=== PATIENT | male | born 1970 | race Hispanic/Latino ===

== ENCOUNTER 2020-02-17 20:02 | Inpatient (IN) | payer SELFPAY ==
[~2020-02-17] VITALS: Ht 175.3 cm; Wt 79.0 kg
[2020-02-17] MEDS ORDERED: SODIUM CHLORIDE 0.9% 1000ML 1,000 ML IV ONE (20:36)
[2020-02-17 20:56] LABS: BASOPHILS % (AUTO) 1.2 % (0.0-5.0); HEMATOCRIT 26.2 % (42-54); LYMPHOCYTES % (AUTO) 26.3 % (21.0-51.0); MEAN CORPUSCULAR HEMOGLOBIN 30.2 pg (27.0-33.0); MEAN CORPUSCULAR HGB CONC 33.2 g/dL (32.0-36.0); MONOCYTES % (AUTO) 9.4 % (3.0-13.0); NEUTROPHILS % (AUTO) 60.7 % (40.0-77.0); PLATELET COUNT (AUTO) 138 K/uL (130-400); RED BLOOD CELL COUNT(AUTO) 2.88 MIL/uL (4.50-6.20); RED CELL DISTRIBUTION WIDTH 13.2 % (11.0-15.5); WHITE BLOOD COUNT (AUTO) 7.5 K/uL (4.8-10.8)
[2020-02-17 21:10] LABS: INR 1.35 (0.85-1.15); PARTIAL THROMBOPLASTIN TIME 34.1 SEC (26.3-35.5); PROTHROMBIN TIME 14.4 SEC (9.6-11.6)
[2020-02-17 21:17] LABS: BILIRUBIN,URINE NEGATIVE (NEGATIVE); GLUCOSE, URINE (UA) NEGATIVE (NEGATIVE); KETONES,URINE NEGATIVE (NEGATIVE); LEUKOCYTE ESTERASE ,URINE LARGE (NEGATIVE); NITRATE,URINE NEGATIVE (NEGATIVE); OCCULT BLOOD,URINE LARGE (NEGATIVE); PH,URINE 6.5 (5.0-8.0); PROTEIN,URINE 30 mg/dL (NEGATIVE); UROBILINOGEN,URINE 0.2 mg/dL (0.2-1.0)
[2020-02-17 21:19] LABS: APPEARANCE,URINE BLOODY (CLEAR); COLOR,URINE RED (YELLOW)
[2020-02-17 21:21] LABS: BACTERIA,URINE Few /HPF (None Seen); RBC,URINE >100 /HPF (0-1); SQUAMOUS EPITHELIAL CELL,UR None Seen /HPF (0-2)
[2020-02-17 21:32] LABS: CREATININE 1.2 mg/dL (0.5-1.5); POTASSIUM 3.9 mmol/L (3.5-5.1)
[2020-02-17 21:36] LABS: ALBUMIN 1.6 g/dL (3.5-5.0); BILIRUBIN,TOTAL 1.3 mg/dL (0.2-1.0); TOTAL PROTEIN, SERUM 7.6 g/dL (6.0-8.3)
[2020-02-17] MEDS ORDERED: IOHEXOL-350 75 ML VIAL IV ONE (21:48)
[2020-02-17] MEDS ORDERED: FUROSEMIDE 10 MG/ML 2ML VIAL ONE (23:29)
[2020-02-17] MEDS ORDERED: CEFTRIAXONE SODIUM 1 GM ONE (23:29)
[2020-02-17] MEDS ORDERED: SODIUM CHLORIDE 0.9% 100 ML IV ONE (23:31)
[2020-02-17 23:50] LABS: AMPHET/METH SCREEN,URINE NEGATIVE (NEGATIVE); BARBITURATE SCREEN, URINE NEGATIVE (NEGATIVE); BENZODIAZEPINES SCREEN,URINE NEGATIVE (NEGATIVE); CANNABINOID SCREEN,URINE NEGATIVE (NEGATIVE); COCAINE SCREEN,URINE NEGATIVE (NEGATIVE); OPIATE SCREEN,URINE NEGATIVE (NEGATIVE); PHENCYCLIDINE SCREEN,URINE NEGATIVE (NEGATIVE)
[2020-02-18] MEDS ORDERED: ONDANSETRON HCL 4 MG/2 ML VIAL IV PRN
[2020-02-18] MEDS ORDERED: LACTULOSE 20 GM/30 ML UDCUP PO PRN
[2020-02-18] MEDS ORDERED: DIPHENHYDRAMINE HCL 25 MG CAPSULE PO PRN
[2020-02-18] MEDS ORDERED: NITROGLYCERIN 0.4 MG SL TAB SL PRN
[2020-02-18] MEDS: LACTULOSE 20 GM/30 ML UDCUP PO SCH
[2020-02-18 04:14] LABS: HEMATOCRIT 26.1 % (42-54); MEAN CORPUSCULAR HGB CONC 32.6 g/dL (32.0-36.0); MEAN CORPUSCULAR VOLUME 92.2 fL (79-99); RED BLOOD CELL COUNT(AUTO) 2.83 MIL/uL (4.50-6.20); RED CELL DISTRIBUTION WIDTH 13.2 % (11.0-15.5); WHITE BLOOD COUNT (AUTO) 7.3 K/uL (4.8-10.8)
[2020-02-18 04:23] LABS: BAND NEUTROPHILS % (MANUAL) 4 % (0-2); LYMPHOCYTES % (MANUAL) 14 % (22-44); MAN.DIFF COMMENT-IMPRESSION MANUAL DIFFERENTIAL; MONOCYTES % (MANUAL) 4 % (2-9); SEGMENTED NEUTROPHILS % 78 % (40-70)
[2020-02-18 04:24] LABS: PLATELET MORPHOLOGY COMMENT PLT. CLUMPING NOTED
[2020-02-18 04:25] LABS: PLATELET COUNT (AUTO) 156 K/uL (130-400)
[2020-02-18 04:28] LABS: ALBUMIN 1.5 g/dL (3.5-5.0); BILIRUBIN,TOTAL 1.4 mg/dL (0.2-1.0); CREATININE 1.1 mg/dL (0.5-1.5); MAGNESIUM 1.7 mg/dL (1.80-2.40); POTASSIUM 3.6 mmol/L (3.5-5.1); TOTAL PROTEIN, SERUM 7.1 g/dL (6.0-8.3)
[2020-02-18] MEDS ORDERED: POTASSIUM CHLORIDE 20MEQ/100ML 100 ML IV PRN (05:15)
[2020-02-18] MEDS ORDERED: LIDOCAINE HCL-MPF 1% 2ML VIAL IJ PRN (05:15)
[2020-02-18] MEDS ORDERED: POTASSIUM CHLORIDE 10% ELIXIR 20 MEQ/15 ML UDCUP PO PRN (05:15)
[2020-02-18] MEDS: CEFTRIAXONE SODIUM 1 GM IV SCH (06:00)
[2020-02-18] MEDS ORDERED: FAMOTIDINE/PF 20 MG/2 ML VIAL IV ONE (08:42)
[2020-02-18] MEDS ORDERED: MAGNESIUM 2GM PREMIX 50ML 50 ML IV ONE (08:42)
--- NOTE | 2020-02-18 08:57 | NUR ---
RE: PARACENTESIS PATIENT SCHEDULED FOR PARACENTESIS. COVID-19 RAPID TEST NEGATIVE AND PENDING COVID-[address] Shelley RUSH NOTIFIED AND AND STATED TO WAIT FOR RESULTS PRIOR TO PARACENTESIS. ED NURSE NOTIFIED OF PROCEDURE OUTCOME.
[2020-02-18] MEDS: FAMOTIDINE/PF 20 MG/2 ML VIAL IV SCH ×2 (09:00→20:07)
--- NOTE | 2020-02-18 12:51 | NUR ---
CM NOTE/IA UNABLE TO MET WITH PATIENT AT BEDSIDE. JAREN WILSON DID IA. PER PATIENT, LIVES WITH SISTER, HAS USE OF WALKER AND WHEELCHAIR, NO PROVIDER OR HOME HEALTH SERVICES AND FEELS SAFE TO RETURN HOME. CORRECT PATIENT PHONE NUMBERS FOLLOWS: [phone] AND [phone]. PATIENT STATES FIRST OF KIN WILL BE MINOO YANG, SIBLING BUT UNSURE OF PHONE NUMBER, WILL OBTAIN LATER. Addendum: 02/18/20 at 1253 by OLEG ANTONIO RN CM Amended: Links added.
[2020-02-18 14:36] VITALS: BP 148/98
[2020-02-18] MEDS ORDERED: TAMS-1 PO (15:07)
[2020-02-18] MEDS ORDERED: VENL-53 PO (15:07)
[2020-02-18] MEDS ORDERED: HYDR-4153 PO (15:07)
[2020-02-18] MEDS ORDERED: PANT40GR PO (15:07)
[2020-02-18] MEDS ORDERED: MIDO5TAB4 PO (15:07)
[2020-02-18] MEDS ORDERED: FURO20TA6 PO (15:09)
[2020-02-18] MEDS ORDERED: LACT10SO PO (15:09)
[2020-02-18] MEDS ORDERED: SPIR50TA5 PO (15:12)
[2020-02-18] MEDS ORDERED: FOLI1 PO (15:12)
[2020-02-18] MEDS ORDERED: MAGOX PO (15:12)
[2020-02-18] MEDS ORDERED: ONDA8TAB12 PO (15:14)
[2020-02-18] MEDS ORDERED: LACTULOSE 20 GM/30 ML UDCUP ONE (15:45)
[2020-02-18 18:52] VITALS: BP 148/95
[2020-02-18 19:37] VITALS: BP 154/105
[2020-02-18] MEDS ORDERED: HYDROMORPHONE HCL 2 MG/ML VIAL ONE (20:20)
[2020-02-18] MEDS: HYDROMORPHONE 1 MG/1 ML AMP IVP PRN (21:12)
[2020-02-19] MEDS: LACTULOSE 20 GM/30 ML UDCUP PO SCH ×3 (00:07→20:41)
[2020-02-19] MEDS: HYDROMORPHONE 1 MG/1 ML AMP IVP PRN ×2 (00:07→04:15)
[2020-02-19] MEDS ORDERED: [UNRECOGNIZED DRUG - CODE] IV (01:05)
[2020-02-19 04:05] VITALS: BP 129/78
[2020-02-19] MEDS: CEFTRIAXONE SODIUM 1 GM IV SCH (05:13)
[2020-02-19 06:08] LABS: MEAN CORPUSCULAR VOLUME 90.6 fL (79-99)
[2020-02-19 06:11] LABS: MEAN CORPUSCULAR HEMOGLOBIN 29.7 pg (27.0-33.0); MEAN CORPUSCULAR HGB CONC 32.8 g/dL (32.0-36.0); RED BLOOD CELL COUNT(AUTO) 2.76 MIL/uL (4.50-6.20); RED CELL DISTRIBUTION WIDTH 13.3 % (11.0-15.5); WHITE BLOOD COUNT (AUTO) 7.3 K/uL (4.8-10.8)
[2020-02-19 06:30] LABS: ALBUMIN 1.5 g/dL (3.5-5.0); BILIRUBIN,TOTAL 1.5 mg/dL (0.2-1.0); MAGNESIUM 1.7 mg/dL (1.80-2.40); POTASSIUM 3.3 mmol/L (3.5-5.1); TOTAL PROTEIN, SERUM 6.8 g/dL (6.0-8.3)
[2020-02-19] MEDS: POTASSIUM CHLORIDE 20 MEQ ERTAB PO PRN (06:39)
[2020-02-19 08:05] VITALS: BP 141/91
[2020-02-19] MEDS: FAMOTIDINE/PF 20 MG/2 ML VIAL IV SCH ×2 (09:02→20:41)
--- NOTE | 2020-02-19 11:58 | NUR ---
PHONE NUMBER FOR OLGA MOCTEZUMA IS [phone], GWEN YANG IS [phone]. FACE SHEET FAXED TO REGISTRATION FOR CHANGES.
--- NOTE | 2020-02-19 13:30 | NUR ---
SUPERVISOR FIBER LOCKING SHAWANDA AWARE OF COVID NEGATIVE PCR.
[2020-02-19 13:55] VITALS: BP 136/86
--- NOTE | 2020-02-19 14:30 | NUR ---
PAGED DR PARMAR. WAITING PRINTER APPRENTICE BACL. DR PARMAR WAS MADE AWARE OF THE CONSULT ON 02/17/20 ACCORDING TO ER NURSE ABAD, SHE WAS THEN WAITING ON PCR RESULT TO SEE PT. COVID PCR IS NEGATIVE. WAITING PRINTER APPRENTICE BACK TO INFORM DR PARMAR.
--- NOTE | 2020-02-19 14:34 | NUR ---
[address] Moon made aware of covid PCR results negative para to be done Friday or Friday primary nurse made aware. Ahsan woo
[2020-02-19] MEDS: MAGNESIUM 2GM PREMIX 50ML 50 ML IV PRN (16:39)
[2020-02-19 17:12] VITALS: BP 111/82
[2020-02-19 20:00] VITALS: BP 131/96
[2020-02-19] MEDS: SPIRONOLACTONE 25 MG TAB PO SCH (20:41)
[2020-02-19] MEDS: HYDRALAZINE HCL 25 MG TABLET PO SCH (20:42)
[2020-02-19] MEDS: FUROSEMIDE 20 MG TABLET PO SCH (20:42)
[2020-02-19 23:54] VITALS: BP 130/79
[2020-02-20] MEDS: LACTULOSE 20 GM/30 ML UDCUP PO SCH ×4 (02:00→20:00)
[2020-02-20 04:08] VITALS: BP 118/81
[2020-02-20] MEDS: CEFTRIAXONE SODIUM 1 GM IV SCH (05:39)
[2020-02-20 06:26] LABS: ALBUMIN 1.6 g/dL (3.5-5.0); BILIRUBIN,TOTAL 1.3 mg/dL (0.2-1.0); CREATININE 1.1 mg/dL (0.5-1.5); POTASSIUM 3.4 mmol/L (3.5-5.1); TOTAL PROTEIN, SERUM 7.2 g/dL (6.0-8.3)
[2020-02-20 06:48] LABS: BASOPHILS % (AUTO) 0.9 % (0.0-5.0); EOSINOPHILS % (AUTO) 2.1 % (0.0-8.0); HEMATOCRIT 25.3 % (42-54); LYMPHOCYTES % (AUTO) 33.9 % (21.0-51.0); MEAN CORPUSCULAR HGB CONC 33.2 g/dL (32.0-36.0); MEAN CORPUSCULAR VOLUME 90.4 fL (79-99); MONOCYTES % (AUTO) 11.5 % (3.0-13.0); NEUTROPHILS % (AUTO) 51.5 % (40.0-77.0); PLATELET COUNT (AUTO) 126 K/uL (130-400); RED CELL DISTRIBUTION WIDTH 13.2 % (11.0-15.5); WHITE BLOOD COUNT (AUTO) 7.6 K/uL (4.8-10.8)
[2020-02-20 08:00] VITALS: BP 151/101
[2020-02-20] MEDS: FUROSEMIDE 20 MG TABLET PO SCH (08:31)
[2020-02-20] MEDS: VENLAFAXINE HCL XR 37.5 MG CAP PO SCH (08:31)
[2020-02-20] MEDS: MAGNESIUM OXIDE 400 MG TABLET PO SCH (08:31)
[2020-02-20] MEDS: FOLIC ACID 1 MG TABLET PO SCH (08:31)
[2020-02-20] MEDS: FAMOTIDINE/PF 20 MG/2 ML VIAL IV SCH ×2 (08:31→21:58)
[2020-02-20] MEDS: SPIRONOLACTONE 25 MG TAB PO SCH ×2 (08:32→21:58)
--- NOTE | 2020-02-20 09:07 | NUR ---
PAGED DR PARMAR AGAIN. WAITING GAS APPLIANCE REPAIRER BACK.
[2020-02-20 12:00] VITALS: BP 135/99
[2020-02-20] MEDS ORDERED: ALBUMIN (HUMAN) 25% 200 ML IV SCH (12:15)
[2020-02-20] MEDS: DIPHENHYDRAMINE HCL 25 MG CAPSULE PO PRN (12:56)
[2020-02-20 16:00] VITALS: BP 141/99
--- NOTE | 2020-02-20 17:01 | NUR ---
REASSESSMENT MARK spoke to patient's sister, Candy Hutton. She informed SW that she is Medical and Durable POA for patient. As per sister, patient has been staying at [facility] in [place] for the past 2 weeks. He has no home services or DME. Family paid private pay for patient's placement. Sister stated that patient receives SSDI and will have Medicaid effective 03/07/2020. Sister stated that she would like for patient to return back to custodial but is unsure if they will accept him back. Patient's sister informed MARK that family is requesting hospice and would consider placing patient at [facility] or at [facility] in [place]. Sister states she is unable to care for patient at home because she cares for her spouse who suffers from Parkinson's and cares for her mother who suffers from Alzheimer's. Patient's sister stated that one of the physicians had spoken to her about Code status and she had decided that patient should be Do Not Resuscitate but had not informed anyone at the hospital. CM, Martin Landon, made aware and informed patient's nurse. Patient's sister also informed SW that patient is pending some testing to determine stomach cancer so she is waiting on those results to give consent for hospice. Sister states she has no preference on agency and just wants patient to be comfortable. MARK contacted [facility] ([phone])and spoke to House Solar Design Engineer, Kerry Nicko. Ms. Maharaj informed MARK that patient's brother had paid $1150 for patient to stay at custodial but family was unsure if they could afford to pay for another month. Ms. Maharaj stated that she did not think they could accept patient back even if he was on hospice due to financial concerns. She also stated that patient wanted someone to stay with him at all times while he had been there at the custodial and that was not possible. MARK informed patient's sister of what Ms. Maharaj had stated. Once again, patient's sister stated that she was unable to care for patient safely at home. MARK will continue to follow up with patient and sister to determine discharge disposition that is safe and appropriate for patient.
[2020-02-20 19:45] VITALS: BP 124/88
[2020-02-20] MEDS ORDERED: RISPERIDONE 1 MG TABLET PO SCH (21:00)
[2020-02-20] MEDS: RIFAXIMIN 550 MG TABLET PO SCH (21:58)
[2020-02-20] MEDS: FUROSEMIDE 40 MG TABLET PO SCH (21:59)
[2020-02-20] MEDS: HYDRALAZINE HCL 25 MG TABLET PO SCH (22:02)
[2020-02-20 23:40] VITALS: BP 104/59
[2020-02-21] VITALS (11 sets, daily range): BP systolic 99–124; BP diastolic 54–89
[2020-02-21] MEDS: LACTULOSE 20 GM/30 ML UDCUP PO SCH ×4 (02:00→20:00)
[2020-02-21] MEDS: CEFTRIAXONE SODIUM 1 GM IV SCH (05:40)
[2020-02-21 06:14] LABS: ALBUMIN 1.5 g/dL (3.5-5.0); BILIRUBIN,TOTAL 1.3 mg/dL (0.2-1.0); POTASSIUM 3.6 mmol/L (3.5-5.1); TOTAL PROTEIN, SERUM 6.8 g/dL (6.0-8.3)
[2020-02-21 07:00] LABS: EOSINOPHILS % (AUTO) 2.9 % (0.0-8.0); LYMPHOCYTES % (AUTO) 43.6 % (21.0-51.0); MEAN CORPUSCULAR HEMOGLOBIN 29.7 pg (27.0-33.0); MEAN CORPUSCULAR HGB CONC 33.2 g/dL (32.0-36.0); MEAN CORPUSCULAR VOLUME 89.6 fL (79-99); MONOCYTES % (AUTO) 9.8 % (3.0-13.0); NEUTROPHILS % (AUTO) 42.4 % (40.0-77.0); PLATELET COUNT (AUTO) 75 K/uL (130-400); RED BLOOD CELL COUNT(AUTO) 2.79 MIL/uL (4.50-6.20); RED CELL DISTRIBUTION WIDTH 13.2 % (11.0-15.5); WHITE BLOOD COUNT (AUTO) 6.8 K/uL (4.8-10.8)
[2020-02-21] MEDS ORDERED: RISPERIDONE 0.5 MG TABLET PO SCH ×2 (09:00→12:00)
[2020-02-21] MEDS: MAGNESIUM OXIDE 400 MG TABLET PO SCH (09:48)
[2020-02-21] MEDS: VENLAFAXINE HCL XR 37.5 MG CAP PO SCH (09:48)
[2020-02-21] MEDS: FUROSEMIDE 40 MG TABLET PO SCH ×2 (09:48→21:11)
[2020-02-21] MEDS: FOLIC ACID 1 MG TABLET PO SCH (09:48)
[2020-02-21] MEDS: FAMOTIDINE/PF 20 MG/2 ML VIAL IV SCH ×2 (09:49→21:10)
[2020-02-21] MEDS: RIFAXIMIN 550 MG TABLET PO SCH ×2 (09:49→21:10)
[2020-02-21] MEDS: SPIRONOLACTONE 25 MG TAB PO SCH ×2 (09:49→21:11)
--- NOTE | 2020-02-21 15:30 | NUR ---
U/S GUIDED PARACENTESIS PROCEDURE PERFORMED BY DR. BAKER. PUNCTURE SITE RIGHT LOWER QUADRANT AND PATIENT TOLERATED PROCEDURE WELL. TOTAL REMOVED 6.0 LITERS OF YELLOW CLOUDY ASCITES FLUID. END OF PROCEDURE AT 1620 CATHETER REMOVED AND DRESSING APPLIED. NO BLEEDING NOTED. ALBUMIN 25% 50 GRAMS ORDERED TO BE GIVEN IV UPON ARRIVAL TO FLOOR PER ALBUMIN PROTOCOL. REPORT CALLED TO [facility] ASC[facility] AND PATIENT TRANSPORTED TO 3RD FLOOR VIA BED. AAO X 3 WITH NO C/O PAIN. PT STABLE, AAO X 3 WITH NO C/O PAIN.
[2020-02-21] MEDS ORDERED: ALBUMIN (HUMAN) 25% 200 ML IV ONE (16:00)
[2020-02-21 17:21] LABS: ALBUMIN,BODY FLUID 0.5 g/dL
[2020-02-21 19:54] LABS: SPECIMENTYPE,BODY FLUID ASCITES
[2020-02-21 19:55] LABS: APPEARANCE BODY FLUID CLOUDY (CLEAR); COLOR,BODY FLUID DARK YELLOW (LT YELLOW); TOTAL VOLUME,BODY FLUID 6000 mL
[2020-02-21 19:56] LABS: BODY FLUID RBC 2095 /cu. mm.; BODY FLUID WBC 57 /cu. mm.
[2020-02-21 20:17] LABS: BF EOSINOPHIL 1 %; BF LYMPHOCYTE 58 %; BF OTHER CELLS 1
[2020-02-21] MEDS: HYDRALAZINE HCL 25 MG TABLET PO SCH (21:10)
--- NOTE | 2020-02-21 21:10 | NUR ---
MEDS SHIFT ASSESSMENT DONE, PLEASE REFER TO CHART. DUE MEDS ADMINISTERED, TOLERATED WELL. INSTRUCTED TO BE NPO POST MN FOR GI PROCEDURE IN AM. VERBALIZES UNDERSTANDING. CALL LIGHT WITHIN REACH. WILL MONITOR PT. Addendum: 02/21/20 at 2224 by SUJATA CURRY RN RN Amended: Links added.
[2020-02-21] MEDS: RISPERIDONE 1 MG TABLET PO SCH (21:11)
[2020-02-21] MEDS: POTASSIUM CHLORIDE 20 MEQ ERTAB PO PRN ×2 (21:13→23:43)
--- NOTE | 2020-02-21 22:35 | NUR ---
SONO[facility] RADIOLOGY CALLED AND VERIFIED US ABD ORDER. READ DR BURNS'S NOTES AND HE STATED HE WANTS A URINARY BLADDER SONOGRAM. ORDER FIXED BY RADIOLOGY TO RENAL SONOGRAM. CLAMPED F/C FOR NOW TO HAVE A FULL BLADDER FOR SONOGRAM.
[2020-02-21] MEDS: DIPHENHYDRAMINE HCL 25 MG CAPSULE PO PRN (23:43)
[2020-02-22] VITALS (22 sets, daily range): BP systolic 82–126; BP diastolic 47–85
[2020-02-22] MEDS: LACTULOSE 20 GM/30 ML UDCUP PO SCH ×4 (01:05→20:52)
--- NOTE | 2020-02-22 02:00 | NUR ---
ROUNDS PT RESTING WELL, FAIRLY ASLEEP. NO DISTRESS NOTED. KEPT UNDISTURBED FOR NOW. KEPT NPO. WILL CONTINUE TO MONITOR.
[2020-02-22 04:04] LABS: BASOPHILS % (AUTO) 0.7 % (0.0-5.0); EOSINOPHILS % (AUTO) 2.7 % (0.0-8.0); HEMATOCRIT 23.8 % (42-54); LYMPHOCYTES % (AUTO) 41.2 % (21.0-51.0); MEAN CORPUSCULAR HEMOGLOBIN 30.5 pg (27.0-33.0); MEAN CORPUSCULAR VOLUME 89.5 fL (79-99); MONOCYTES % (AUTO) 9.5 % (3.0-13.0); NEUTROPHILS % (AUTO) 45.7 % (40.0-77.0); PLATELET COUNT (AUTO) 91 K/uL (130-400); RED BLOOD CELL COUNT(AUTO) 2.66 MIL/uL (4.50-6.20); RED CELL DISTRIBUTION WIDTH 13.3 % (11.0-15.5); WHITE BLOOD COUNT (AUTO) 5.5 K/uL (4.8-10.8)
[2020-02-22 04:14] LABS: CREATININE 1.1 mg/dL (0.5-1.5); TOTAL PROTEIN, SERUM 6.4 g/dL (6.0-8.3)
--- NOTE | 2020-02-22 05:08 | NUR ---
BATHE PCP IN AND GAVE PT A BED BATH, TOLERATED ACTIVITY WELL. POSITIONED COMFORTABLY IN BED. KEPT NPO. FOR MORE CARE.
[2020-02-22] MEDS: CEFTRIAXONE SODIUM 1 GM IV SCH (05:51)
[2020-02-22] MEDS: FUROSEMIDE 40 MG TABLET PO SCH ×2 (08:19→20:49)
[2020-02-22] MEDS: SPIRONOLACTONE 25 MG TAB PO SCH ×2 (08:19→20:49)
[2020-02-22] MEDS: RIFAXIMIN 550 MG TABLET PO SCH ×2 (08:20→20:49)
[2020-02-22] MEDS: FAMOTIDINE/PF 20 MG/2 ML VIAL IV SCH ×2 (09:00→20:49)
[2020-02-22] MEDS ORDERED: PROPOFOL 10 MG/ML 20ML VIAL IV ONE (11:32)
[2020-02-22] MEDS ORDERED: MIDAZOLAM HCL 1 MG/ML 2ML VIAL ONE (11:33)
--- NOTE | 2020-02-22 14:00 | NUR ---
CM Note: Called [facility] CM called Kerry Maharaj w/[facility], left voicemail, given CM #, pending call back. CM to continue to follow up.
--- NOTE | 2020-02-22 14:50 | NUR ---
CM Note: Called family member on facesheet CM called male voice answered, asked for family member of pt, male voice verbalized "wrong number," CM verfied phone # to male voice, he said right number but does not know pt name. CM thanked male voice on the other line. CM to continue to follow up.
--- NOTE | 2020-02-22 14:53 | NUR ---
CM Note: called family phone # on facesheet. CM called family phone # on facesheet , female voice answered, asked for fam regarding pt. Female voice verbalized "she does not know that person, wrong number." Verfied phone#, female said this is her number but does not know pt. CM thanked femal voice, apologized for wrong number. CM to continue to follow up.
--- NOTE | 2020-02-22 15:00 | NUR ---
CM Note: Called [facility] CM called Kerry Maharaj w/[facility] , went to voicemail, left voicemail to call CM back, given CM direct #. Awaiting call back. CM to continue to follow up.
[2020-02-22] MEDS: MAGNESIUM OXIDE 400 MG TABLET PO SCH (15:50)
[2020-02-22] MEDS: VENLAFAXINE HCL XR 37.5 MG CAP PO SCH (15:51)
[2020-02-22] MEDS: RISPERIDONE 0.5 MG TABLET PO SCH (15:51)
[2020-02-22] MEDS: FOLIC ACID 1 MG TABLET PO SCH (15:52)
--- NOTE | 2020-02-22 16:00 | NUR ---
CM Note: Spoke to pt's brother Gorge CM called pt's brother Gorge , as per brother he is not the POA, sister claims she has MPOA but unsure. Informed brother of drake, JUDITH left 2 messages to Kerry mejía/[facility], still no return call at this time. Brother verbalized facility might not be able to accept pt back due to financial difficulties. Pt brother said he paid almost $1200 for pt's stay, but that is only for the say, facility unable to cover medical needs for patient. Brother made aware if facility does not take pt back, family will have to take pt home. Brother said he is unable to care for pt at home as he is already taking care of mother who is 94 y/0 and is taking up most of his time already. Brother verbalized sister Candy or other family will have to take patient home. Will contact family to discuss plan for home. Informed brother will call sister Candy Hutton. JUDITH to continue to follow up.
--- NOTE | 2020-02-22 16:23 | NUR ---
CM Note: spoke to pt's sister Candy Hutton CM called pt's sister Candy Hutton updated w/POC, made aware CM left two messages to Kerry w/[facility], but up to now still no call back. Informed Candy spoke to her brother Gorge and made aware of poss dc to home, as per Gorge unable to take pt home with him as he is already taking care of mother who is 94y/o and requiring a lot of assistance. Informed Valerie if facility does not want to take patient back sister will have to take pt home once ready to DC. Sister verbalized understanding and agreeable to take pt home if needed. Sister request assistance at home. Pt has walker and wheelchair, might need bed and provider to help patient as she is taking care of that has Parkinson's. Informed Candy will inform ARLEY Medina regarding request. Carol will call Candy to see how she may be able to assist pt. Candy verbalized understanding. Informed sister patient might need EMS transport to home as he is very weak and unable to get out of bed, made aware it will be private pay, EMS will mail bill to house if he goes by EMS, verbalized understanding, agreeable for EMS if necessary. DC plan to home w/. Primary nurse [facility] ESCOBEDO aware. CM informed Carol w/[facility] regarding sister Candy's request. Will call sister. CM to continue to follow up.
[2020-02-22] MEDS: HYDRALAZINE HCL 25 MG TABLET PO SCH (20:49)
[2020-02-22] MEDS: RISPERIDONE 1 MG TABLET PO SCH (20:49)
--- NOTE | 2020-02-22 20:49 | NUR ---
MEDS Due meds given,romi well.
[2020-02-23] VITALS (7 sets, daily range): BP systolic 100–126; BP diastolic 70–87
[2020-02-23] MEDS: LACTULOSE 20 GM/30 ML UDCUP PO SCH ×4 (03:10→21:29)
[2020-02-23] MEDS: CEFTRIAXONE SODIUM 1 GM IV SCH (05:29)
[2020-02-23 06:05] LABS: BASOPHILS % (AUTO) 0.7 % (0.0-5.0); EOSINOPHILS % (AUTO) 2.4 % (0.0-8.0); HEMATOCRIT 25.5 % (42-54); LYMPHOCYTES % (AUTO) 42.9 % (21.0-51.0); MEAN CORPUSCULAR HEMOGLOBIN 29.5 pg (27.0-33.0); MEAN CORPUSCULAR HGB CONC 32.5 g/dL (32.0-36.0); MEAN CORPUSCULAR VOLUME 90.7 fL (79-99); MONOCYTES % (AUTO) 11.5 % (3.0-13.0); NEUTROPHILS % (AUTO) 42.2 % (40.0-77.0); PLATELET COUNT (AUTO) 66 K/uL (130-400); RED BLOOD CELL COUNT(AUTO) 2.81 MIL/uL (4.50-6.20); RED CELL DISTRIBUTION WIDTH 13.3 % (11.0-15.5); WHITE BLOOD COUNT (AUTO) 5.8 K/uL (4.8-10.8)
[2020-02-23 06:07] LABS: CREATININE 1.1 mg/dL (0.5-1.5); POTASSIUM 3.9 mmol/L (3.5-5.1)
[2020-02-23] MEDS: RISPERIDONE 0.5 MG TABLET PO SCH (10:07)
[2020-02-23] MEDS: FOLIC ACID 1 MG TABLET PO SCH (10:07)
[2020-02-23] MEDS: VENLAFAXINE HCL XR 37.5 MG CAP PO SCH (10:07)
[2020-02-23] MEDS: FUROSEMIDE 40 MG TABLET PO SCH ×2 (10:07→21:22)
[2020-02-23] MEDS: SPIRONOLACTONE 25 MG TAB PO SCH ×2 (10:07→21:21)
[2020-02-23] MEDS: RIFAXIMIN 550 MG TABLET PO SCH ×2 (10:07→21:22)
[2020-02-23] MEDS: FAMOTIDINE/PF 20 MG/2 ML VIAL IV SCH ×2 (10:07→21:25)
[2020-02-23] MEDS: MAGNESIUM OXIDE 400 MG TABLET PO SCH (10:07)
[2020-02-23] MEDS: RISPERIDONE 1 MG TABLET PO SCH (21:22)
[2020-02-23] MEDS: HYDRALAZINE HCL 25 MG TABLET PO SCH (21:22)
[2020-02-24 03:54] VITALS: BP 102/75
[2020-02-24 04:06] LABS: BASOPHILS % (AUTO) 0.9 % (0.0-5.0); EOSINOPHILS % (AUTO) 2.4 % (0.0-8.0); HEMATOCRIT 23.9 % (42-54); LYMPHOCYTES % (AUTO) 40.8 % (21.0-51.0); MEAN CORPUSCULAR HGB CONC 33.9 g/dL (32.0-36.0); MEAN CORPUSCULAR VOLUME 88.5 fL (79-99); MONOCYTES % (AUTO) 10.3 % (3.0-13.0); NEUTROPHILS % (AUTO) 45.2 % (40.0-77.0); PLATELET COUNT (AUTO) 80 K/uL (130-400); WHITE BLOOD COUNT (AUTO) 5.4 K/uL (4.8-10.8)
[2020-02-24 04:16] LABS: CREATININE 1.4 mg/dL (0.5-1.5); POTASSIUM 3.9 mmol/L (3.5-5.1)
[2020-02-24] MEDS: CEFTRIAXONE SODIUM 1 GM IV SCH (05:41)
[2020-02-24] MEDS: LACTULOSE 20 GM/30 ML UDCUP PO SCH ×4 (05:41→21:46)
[2020-02-24 07:30] VITALS: BP 111/79
[2020-02-24] MEDS: MAGNESIUM OXIDE 400 MG TABLET PO SCH (10:04)
[2020-02-24] MEDS: RISPERIDONE 0.5 MG TABLET PO SCH (10:04)
[2020-02-24] MEDS: RIFAXIMIN 550 MG TABLET PO SCH ×2 (10:04→21:46)
[2020-02-24] MEDS: FOLIC ACID 1 MG TABLET PO SCH (10:04)
[2020-02-24] MEDS: FAMOTIDINE/PF 20 MG/2 ML VIAL IV SCH ×2 (10:05→21:47)
[2020-02-24] MEDS: LACTATED RINGERS 1000ML 1,000 ML IV SCH ×2 (10:08→20:50)
[2020-02-24 11:00] VITALS: BP 104/75
--- NOTE | 2020-02-24 12:24 | NUR ---
RD NOTIFICATION Pt admitted due to Ascites, Pleural Effusion, and UTI. Pt has hx of paracentesis. Recent paracentesis removed 6 L of fluid as per EMR Pt seen by RD due to LOS x7 days. Pt is currently on a HH diet and consuming 75-100%. RD spoke to pt, pt stated having an appetite and eating well. Pt has hx of smoking, has since quite and has habit of having lollipops. Pt is requesting lollipops and cheetos. As per RN, pt dislikes the taste of hospital food. PO intake fluctuates. RD unable to obtain accurate information on weight loss. Pt has Mild-Moderate muscle loss upon NFPA. Pt is at increased energy and protein needs due to hx of liver cirrhosis. RD RECOMMENDATION: Continue current diet order Ensure TID. Monitor PO intake When medically feasible, consider MVI supplementation RD will continue to follow pt Contact dietary as nutritional concerns arise LABS: NA 131, CL 99, GFR 57, BG 150, TOT CA 8.1, IRON 70, TIBC 140, %SAT 50, TOT PRO 6.4, ALB 2.0, AMMONIA 22 LBM: 02/21/20 Addendum: 02/24/20 at [address] Amended: Links added.
[2020-02-24 13:40] LABS: CREATININE 1.5 mg/dL (0.5-1.5); POTASSIUM 4.3 mmol/L (3.5-5.1)
[2020-02-24] MEDS: PHARMACY COMMUNICATION MISC SCH ×3 (14:00→22:00)
[2020-02-24] MEDS: VENLAFAXINE HCL XR 37.5 MG CAP PO SCH (14:45)
[2020-02-24 16:00] VITALS: BP 116/78
[2020-02-24 18:28] LABS: APPEARANCE,URINE Clear (CLEAR); BILIRUBIN,URINE Negative (NEGATIVE); COLOR,URINE Yellow (YELLOW); GLUCOSE, URINE (UA) Negative (NEGATIVE); KETONES,URINE Trace mg/dL (NEGATIVE); LEUKOCYTE ESTERASE ,URINE Small (NEGATIVE); NITRATE,URINE Negative (NEGATIVE); OCCULT BLOOD,URINE Negative (NEGATIVE); PROTEIN,URINE Negative (NEGATIVE)
[2020-02-24 18:30] LABS: CHLORIDE,URINE RANDOM 45 mmol/L (110-250); CREATININE,URINE RANDOM 110 mg/dL (30-135); SODIUM,URINE RANDOM 31 mmol/l (40-220)
[2020-02-24] MEDS: ALBUMIN (HUMAN) 25% 50 ML IV SCH (18:37)
[2020-02-24 18:44] LABS: BACTERIA,URINE Few /HPF (None Seen)
[2020-02-24 18:47] LABS: YEAST,URINE BUDDING Few /HPF (None Seen)
[2020-02-24 18:48] LABS: AMORPHOUS SEDIMENT,UR Few /LPF (None Seen); MUCUS,URINE Rare LPF (None Seen); SQUAMOUS EPITHELIAL CELL,UR Rare /HPF (0-2)
[2020-02-24 19:30] VITALS: BP 100/66
[2020-02-24] MEDS: HYDRALAZINE HCL 25 MG TABLET PO SCH (21:46)
[2020-02-24] MEDS: OLANZAPINE 5 MG TAB PO SCH (21:46)
[2020-02-24 23:30] VITALS: BP 96/63
[2020-02-25] MEDS: ALBUMIN (HUMAN) 25% 50 ML IV SCH ×2 (01:37→10:47)
[2020-02-25] MEDS: PHARMACY COMMUNICATION MISC SCH ×2 (02:00→06:00)
[2020-02-25 03:46] VITALS: BP 103/70
[2020-02-25 04:11] LABS: HEMATOCRIT 24.2 % (42-54); MEAN CORPUSCULAR HEMOGLOBIN 30.1 pg (27.0-33.0); MEAN CORPUSCULAR HGB CONC 33.9 g/dL (32.0-36.0); RED BLOOD CELL COUNT(AUTO) 2.72 MIL/uL (4.50-6.20); RED CELL DISTRIBUTION WIDTH 13.2 % (11.0-15.5); WHITE BLOOD COUNT (AUTO) 5.7 K/uL (4.8-10.8)
[2020-02-25 04:23] LABS: % IRON SATURATION 25.5 % (30-44)
[2020-02-25 04:46] LABS: ALBUMIN 2.1 g/dL (3.5-5.0); BILIRUBIN,TOTAL 0.9 mg/dL (0.2-1.0); CREATININE 1.1 mg/dL (0.5-1.5); MAGNESIUM 1.8 mg/dL (1.80-2.40); PHOSPHORUS 2.8 mg/dL (2.5-4.9); POTASSIUM 4.1 mmol/L (3.5-5.1); THYROID STIMULATING HORMONE 2.87 uIU/mL (0.36-3.74); TOTAL PROTEIN, SERUM 6.9 g/dL (6.0-8.3); URIC ACID 5.2 mg/dL (2.6-7.2)
[2020-02-25] MEDS: LACTULOSE 20 GM/30 ML UDCUP PO SCH ×4 (05:29→20:12)
[2020-02-25] MEDS: CEFTRIAXONE SODIUM 1 GM IV SCH (05:30)
[2020-02-25 09:58] VITALS: BP 100/66
[2020-02-25] MEDS: Vitamin B Complex/Vit C/Folic Acid PO SCH (10:46)
[2020-02-25] MEDS: FAMOTIDINE/PF 20 MG/2 ML VIAL IV SCH ×2 (10:46→20:12)
[2020-02-25] MEDS: RISPERIDONE 0.5 MG TABLET PO SCH (10:46)
[2020-02-25] MEDS: RIFAXIMIN 550 MG TABLET PO SCH ×2 (10:46→20:13)
[2020-02-25] MEDS: OLANZAPINE 5 MG TAB PO SCH ×2 (10:46→20:12)
[2020-02-25] MEDS: MAGNESIUM OXIDE 400 MG TABLET PO SCH (10:46)
[2020-02-25] MEDS: LACTATED RINGERS 1000ML 1,000 ML IV SCH (10:47)
[2020-02-25] MEDS: VENLAFAXINE HCL XR 37.5 MG CAP PO SCH (10:47)
[2020-02-25] MEDS: FOLIC ACID 1 MG TABLET PO SCH (10:52)
[2020-02-25 12:13] VITALS: BP 105/71
[2020-02-25 16:56] VITALS: BP 114/73
[2020-02-25] MEDS ORDERED: POLYETHYLENE GLYCOL 3350 17 GM POWD.PACK PO SCH (18:00)
[2020-02-25 20:04] VITALS: BP 123/77
[2020-02-25] MEDS: HYDRALAZINE HCL 25 MG TABLET PO SCH (20:13)
--- NOTE | 2020-02-25 20:15 | NUR ---
MEDS SHIFT ASSESSMENT DONE, PLEASE REFER TO CHART. NOTED TO BE COHERENT AT THIS TIME BUT CLAIMS HE HAS EPISODES OF HALLUCINATIONS. ASSISTED TO BE CLEANED AFTER USING THE BEDPAN. DUE MEDS ADMINISTERED, TOLERATED WELL. CALL LIGHT WITHIN REACH. WILL MONITOR PT. PCP MADE AWARE THAT PT NEED A BATH. Addendum: 02/25/20 at 2310 by SUJATA CURRY RN RN Amended: Links added.
[2020-02-25] MEDS: MAGNESIUM 2GM PREMIX 50ML 50 ML IV PRN (23:52)
[2020-02-26] VITALS (7 sets, daily range): BP systolic 103–124; BP diastolic 67–89
--- NOTE | 2020-02-26 02:00 | NUR ---
ROUNDS PT RESTING WELL, FAIRLY ASLEEP. NO DISTRESS NOTED. AWAKENED FOR DUE MEDS, TOLERATED WELL. ENCOURAGED TO GO BACK TO SLEEP. CALL LIGHT WITHIN REACH. WILL MONITOR PT.
[2020-02-26] MEDS: LACTULOSE 20 GM/30 ML UDCUP PO SCH ×4 (02:12→20:57)
[2020-02-26] MEDS: CEFTRIAXONE SODIUM 1 GM IV SCH (06:08)
--- NOTE | 2020-02-26 06:10 | NUR ---
MEDS PT ALREADY AWAKE. NO CONCERNS VERBALIZED. NO DISTRESS NOTED. DUE MEDS ADMINISTERED, TOLERATED WELL. KEPT COMFORTABLE IN BED. FOR MORE CARE.
[2020-02-26 08:00] LABS: CREATININE 1.1 mg/dL (0.5-1.5); POTASSIUM 4.1 mmol/L (3.5-5.1)
[2020-02-26] MEDS: RIFAXIMIN 550 MG TABLET PO SCH ×2 (11:45→20:57)
[2020-02-26] MEDS: VENLAFAXINE HCL XR 37.5 MG CAP PO SCH (11:45)
[2020-02-26] MEDS: MAGNESIUM OXIDE 400 MG TABLET PO SCH (11:45)
[2020-02-26] MEDS: Vitamin B Complex/Vit C/Folic Acid PO SCH (11:45)
[2020-02-26] MEDS: FAMOTIDINE/PF 20 MG/2 ML VIAL IV SCH ×2 (11:45→20:57)
[2020-02-26] MEDS: RISPERIDONE 0.5 MG TABLET PO SCH (11:46)
[2020-02-26] MEDS: OLANZAPINE 5 MG TAB PO SCH ×2 (11:46→20:57)
[2020-02-26] MEDS: FOLIC ACID 1 MG TABLET PO SCH (11:47)
[2020-02-26] MEDS: HYDRALAZINE HCL 25 MG TABLET PO SCH (20:58)
[2020-02-27] MEDS: LACTULOSE 20 GM/30 ML UDCUP PO SCH ×4 (02:35→20:00)
[2020-02-27 03:59] VITALS: BP 111/70
[2020-02-27] MEDS: CEFTRIAXONE SODIUM 1 GM IV SCH (05:39)
[2020-02-27 06:06] LABS: BASOPHILS % (AUTO) 1.2 % (0.0-5.0); EOSINOPHILS % (AUTO) 3.9 % (0.0-8.0); HEMATOCRIT 22.7 % (42-54); LYMPHOCYTES % (AUTO) 32.4 % (21.0-51.0); MEAN CORPUSCULAR HEMOGLOBIN 30.6 pg (27.0-33.0); MEAN CORPUSCULAR HGB CONC 33.9 g/dL (32.0-36.0); MEAN CORPUSCULAR VOLUME 90.1 fL (79-99); PLATELET COUNT (AUTO) 86 K/uL (130-400); RED BLOOD CELL COUNT(AUTO) 2.52 MIL/uL (4.50-6.20); RED CELL DISTRIBUTION WIDTH 13.4 % (11.0-15.5); WHITE BLOOD COUNT (AUTO) 6.6 K/uL (4.8-10.8)
[2020-02-27 06:09] LABS: CREATININE 1.2 mg/dL (0.5-1.5); POTASSIUM 4.3 mmol/L (3.5-5.1)
[2020-02-27 08:50] VITALS: BP 108/75
[2020-02-27] MEDS: RISPERIDONE 0.5 MG TABLET PO SCH (09:43)
[2020-02-27] MEDS: VENLAFAXINE HCL XR 37.5 MG CAP PO SCH (09:43)
[2020-02-27] MEDS: MAGNESIUM OXIDE 400 MG TABLET PO SCH (09:43)
[2020-02-27] MEDS: FAMOTIDINE/PF 20 MG/2 ML VIAL IV SCH ×2 (09:43→21:45)
[2020-02-27] MEDS: OLANZAPINE 5 MG TAB PO SCH ×2 (09:43→21:45)
[2020-02-27] MEDS: Vitamin B Complex/Vit C/Folic Acid PO SCH (09:43)
[2020-02-27] MEDS: RIFAXIMIN 550 MG TABLET PO SCH ×2 (09:43→21:45)
[2020-02-27] MEDS: FOLIC ACID 1 MG TABLET PO SCH (09:44)
--- NOTE | 2020-02-27 11:18 | NUR ---
SPOKE TO YOSELIN ( TROPICAL SCREENER ), STATED PATIENT DOES NOT MEET CRITERIA AT THIS TIME. OKAY TO CALL BACK IF FURTHER ASSISTANCE IS NEEDED.
[2020-02-27 12:28] VITALS: BP 117/81
[2020-02-27 19:28] VITALS: BP 112/74
[2020-02-27 20:02] VITALS: BP 124/74
[2020-02-27] MEDS: HYDRALAZINE HCL 25 MG TABLET PO SCH (21:45)
[2020-02-28 00:55] VITALS: BP 113/70
[2020-02-28] MEDS: LACTULOSE 20 GM/30 ML UDCUP PO SCH ×3 (02:00→14:00)
[2020-02-28 04:04] VITALS: BP 109/72
[2020-02-28 07:51] VITALS: BP 116/81
[2020-02-28] MEDS: VENLAFAXINE HCL XR 37.5 MG CAP PO SCH (09:38)
[2020-02-28] MEDS: RIFAXIMIN 550 MG TABLET PO SCH (09:39)
[2020-02-28] MEDS: MAGNESIUM OXIDE 400 MG TABLET PO SCH (09:39)
[2020-02-28] MEDS: Vitamin B Complex/Vit C/Folic Acid PO SCH (09:39)
[2020-02-28] MEDS: RISPERIDONE 0.5 MG TABLET PO SCH (09:39)
[2020-02-28] MEDS: OLANZAPINE 5 MG TAB PO SCH (09:40)
[2020-02-28] MEDS: FOLIC ACID 1 MG TABLET PO SCH (09:40)
[2020-02-28] MEDS: FAMOTIDINE/PF 20 MG/2 ML VIAL IV SCH (09:45)
[2020-02-28 11:32] VITALS: BP 137/84
[2020-02-28 16:11] VITALS: BP 103/69
--- NOTE | 2020-02-28 17:51 | NUR ---
PT DISCHARGED IN GOOD CONDITION BY W/C, IV REMOVED W/O DIFFICULTY OR COMPLICATION. PT STATED UNDERSTANDING OF DISCHARGE INSTRUCTIONS. DISMISSED ACCOMPANIED BY STAFF AND FAMILY
--- NOTE | 2020-02-29 11:20 | NUR ---
POST DISCHARGE - TRANSITIONAL CARE TELEPHONE TRIAGE Spoke with Candy Hutton, sister and POA, and she states is unable to take care of patient. Patient has not picked up prescriptions because patient nor Ms Hutton is able to afford it. As per Ms Hutton, patient is incontinent and she is unable to keep up with his demands, and the demands of her elderly parent as she is also the primary caregiver of them. Ms Hutton stated she cannot take care of the patient any longer, and wishes he be "given to the state." Nursing telephone assessment: I agree that the patient's basic needs are not being met due to finances, general lack of resources, the POAs inability to manage his care, and the patient's own inability to self-manage care. Family is present, but unable to manage two total care patients alone. Plan: [facility] phone number was given to Ms Hutton, and she states that she will call immediately after ending phone call. Will follow up to see if Ms Hutton was successful in submitting report.
--- NOTE | 2020-02-29 13:37 | NUR ---
POST DISCHARGE - TRANSITIONAL CARE NOTE Ms Hutton unable to file report with [facility]. I was able to get through and file report with Brigette Irizarry.
== END 2020-02-28 17:55 | disposition home or self-care (01) | DRG 441 ==
LOC: EDH 20:02 → EDHIP 20:03 → 3BH 02-18 18:32
PROVIDERS: ADMIT Family Medicine; ATTEND Family Medicine
PROC: 0DB68ZZ Excision of Stomach, Via Natural or Artificial Opening Endoscopic (ICD-10-PCS; 2020-02-22)
PROC: 0DB68ZX Excision of Stomach, Via Natural or Artificial Opening Endoscopic, Diagnostic (ICD-10-PCS; 2020-02-22)
PROC: 0W9G3ZZ Drainage of Peritoneal Cavity, Percutaneous Approach (ICD-10-PCS; principal; 2020-02-23)
DX: K72.90 Hepatic failure, unspecified without coma (principal); G93.41 Metabolic encephalopathy; T83.511A Infection and inflammatory reaction due to indwelling urethral catheter, initial encounter; J90 Pleural effusion, not elsewhere classified; D68.9 Coagulation defect, unspecified; N17.9 Acute kidney failure, unspecified; K56.49 Other impaction of intestine; C16.9 Malignant neoplasm of stomach, unspecified; E87.1 Hypo-osmolality and hyponatremia; F32.3 Major depressive disorder, single episode, severe with psychotic features; R64 Cachexia; K56.41 Fecal impaction; E83.42 Hypomagnesemia; K80.20 Calculus of gallbladder without cholecystitis without obstruction; K31.7 Polyp of stomach and duodenum; D50.0 Iron deficiency anemia secondary to blood loss (chronic); B96.1 Klebsiella pneumoniae [K. pneumoniae] as the cause of diseases classified elsewhere; D64.9 Anemia, unspecified; D69.6 Thrombocytopenia, unspecified; E11.22 Type 2 diabetes mellitus with diabetic chronic kidney disease; I12.9 Hypertensive chronic kidney disease with stage 1 through stage 4 chronic kidney disease, or unspecified chronic kidney disease; K29.70 Gastritis, unspecified, without bleeding; K70.31 Alcoholic cirrhosis of liver with ascites; N18.9 Chronic kidney disease, unspecified; R31.29 Other microscopic hematuria; R62.7 Adult failure to thrive; Y84.6 Urinary catheterization as the cause of abnormal reaction of the patient, or of later complication, without mention of misadventure at the time of the procedure; Z68.28 Body mass index [BMI] 28.0-28.9, adult; Y92.89 Other specified places as the place of occurrence of the external cause
CPT/HCPCS: 36415; 43239; 49083; 70450; 71045; 74018; 74177; 76770; 80048; 80053; 80305; 81001; 82042; 82105; 82140; 82150; 82270; 82436; 82570; 82728; 82948; 83540; 83550; 83605; 83690; 83735; 83935; 84100; 84145; 84157; 84300; 84443; 84484; 84550; 85025; 85027; 85610; 85730; 86900; 86901; 87040; 87071; 87077; 87088; 87186; 87205; 87426; 87804; 89051; 93005; 97039; A4606; G0378; J0696; J1170; J1940; J2250; J2704; J3475; J3490; J7030; J7120; P9046; P9047; Q0163; Q9967; U0003

== ENCOUNTER 2020-03-01 09:16 | Inpatient (IN) | payer SELFPAY ==
[~2020-03-01] VITALS: Ht 175.3 cm; Wt 83.2 kg
[~2020-03-01 09:16] MED LIST: FOLI1 PO; MAGOX PO; MIDO5TAB4 PO; ONDA8TAB12 PO; PANT40GR PO; TAMS-1 PO; VENL-53 PO
[2020-03-01 12:40] LABS: ALBUMIN 1.8 g/dL (3.5-5.0); BILIRUBIN,TOTAL 0.9 mg/dL (0.2-1.0); CREATININE 1.1 mg/dL (0.5-1.5); POTASSIUM 4.4 mmol/L (3.5-5.1); TOTAL PROTEIN, SERUM 6.7 g/dL (6.0-8.3)
[2020-03-01] MEDS ORDERED: LACTULOSE 20 GM/30 ML UDCUP PO SCH ×2 (14:15)
[2020-03-01] MEDS ORDERED: NITROGLYCERIN 0.4 MG SL TAB SL PRN (14:30)
[2020-03-01] MEDS ORDERED: LACTULOSE 20 GM/30 ML UDCUP PO PRN (14:30)
[2020-03-01 14:55] LABS: WHITE BLOOD COUNT (AUTO) 5.8 K/uL (4.8-10.8)
[2020-03-01] MEDS ORDERED: LACTULOSE 20 GM/30 ML UDCUP ONE (15:14)
[2020-03-01 15:32] LABS: RED BLOOD CELL COUNT(AUTO) 2.42 MIL/uL (4.50-6.20)
[2020-03-01 15:33] LABS: MEAN CORPUSCULAR HGB CONC 34.1 g/dL (32.0-36.0); MEAN CORPUSCULAR VOLUME 90.9 fL (79-99); PLATELET COUNT (AUTO) 104 K/uL (130-400); RED CELL DISTRIBUTION WIDTH 14.2 % (11.0-15.5)
[2020-03-01 15:34] LABS: BASOPHILS % (AUTO) 1.2 % (0.0-5.0); EOSINOPHILS % (AUTO) 3.3 % (0.0-8.0); LYMPHOCYTES % (AUTO) 33.1 % (21.0-51.0); MONOCYTES % (AUTO) 11.9 % (3.0-13.0); NEUTROPHILS % (AUTO) 50.2 % (40.0-77.0)
[2020-03-01] MEDS ORDERED: PANTOPRAZOLE SODIUM 80 MG in SODIUM CHLORIDE 0.9% 100 ML IVP SCH ×2 (16:30→18:45)
[2020-03-01] MEDS ORDERED: OCTREOTIDE ACETATE 1,250 MCG in SODIUM CHLORIDE 0.9% 250 ML IV SCH ×2 (16:30→18:45)
[2020-03-01 16:40] LABS: HEMATOCRIT 23.2 % (42-54)
[2020-03-01 17:32] VITALS: BP 121/85
[2020-03-01] MEDS: CEFTRIAXONE SODIUM 1 GM IVP SCH (18:29)
[2020-03-01] MEDS ORDERED: COMPOUND IV REFRIGERATED 1 EACH IVSOLN MISC PRN (18:45)
[2020-03-01 19:46] LABS: INR 1.45 (0.85-1.15); PARTIAL THROMBOPLASTIN TIME 34.3 SEC (26.3-35.5); PROTHROMBIN TIME 15.4 SEC (9.6-11.6)
[2020-03-01 20:28] VITALS: BP 97/74
[2020-03-01] MEDS: FAMOTIDINE 20MG TAB 20 MG TAB PO SCH (20:28)
[2020-03-01] MEDS: LACTULOSE 20 GM/30 ML UDCUP PO SCH (20:28)
[2020-03-01] MEDS: PANTOPRAZOLE 40 MG/VIAL IVP SCH (20:29)
[2020-03-01] MEDS ORDERED: PANTOPRAZOLE 40 MG/VIAL IVP SCH (21:00)
[2020-03-01] MEDS ORDERED: MORPHINE SULFATE 2 MG/ML 1ML SYG IVP ONE (23:00)
[2020-03-02 00:19] LABS: HEMATOCRIT 24.9 % (42-54)
[2020-03-02 00:20] VITALS: BP 142/86
[2020-03-02 04:36] VITALS: BP 126/81
[2020-03-02 05:04] LABS: BASOPHILS % (AUTO) 1.1 % (0.0-5.0); EOSINOPHILS % (AUTO) 2.6 % (0.0-8.0); HEMATOCRIT 23.8 % (42-54); LYMPHOCYTES % (AUTO) 29.8 % (21.0-51.0); MEAN CORPUSCULAR HEMOGLOBIN 30.1 pg (27.0-33.0); MEAN CORPUSCULAR VOLUME 88.5 fL (79-99); NEUTROPHILS % (AUTO) 54.3 % (40.0-77.0); PLATELET COUNT (AUTO) 91 K/uL (130-400); RED BLOOD CELL COUNT(AUTO) 2.69 MIL/uL (4.50-6.20); RED CELL DISTRIBUTION WIDTH 14.4 % (11.0-15.5); WHITE BLOOD COUNT (AUTO) 6.4 K/uL (4.8-10.8)
[2020-03-02 05:18] LABS: ALBUMIN 1.7 g/dL (3.5-5.0); BILIRUBIN,TOTAL 2.1 mg/dL (0.2-1.0); POTASSIUM 4.1 mmol/L (3.5-5.1); TOTAL PROTEIN, SERUM 6.6 g/dL (6.0-8.3)
[2020-03-02 08:00] VITALS: BP 129/89
[2020-03-02 09:58] LABS: HEMATOCRIT 24.9 % (42-54)
[2020-03-02] MEDS: FOLIC ACID 1 MG TABLET PO SCH (10:09)
[2020-03-02] MEDS: VENLAFAXINE HCL XR 37.5 MG CAP PO SCH (10:09)
[2020-03-02] MEDS: PANTOPRAZOLE 40 MG/VIAL IVP SCH ×2 (10:10→20:03)
[2020-03-02] MEDS: FAMOTIDINE 20MG TAB 20 MG TAB PO SCH ×2 (10:10→20:01)
[2020-03-02] MEDS: LACTULOSE 20 GM/30 ML UDCUP PO SCH ×2 (10:10→20:01)
[2020-03-02 11:45] VITALS: BP 113/78
[2020-03-02 16:00] VITALS: BP 98/71
[2020-03-02 16:36] LABS: BILIRUBIN,URINE Negative (NEGATIVE); COLOR,URINE Yellow (YELLOW); GLUCOSE, URINE (UA) Negative (NEGATIVE); KETONES,URINE Negative (NEGATIVE); LEUKOCYTE ESTERASE ,URINE Small (NEGATIVE); NITRATE,URINE Negative (NEGATIVE); OCCULT BLOOD,URINE Small (NEGATIVE); PROTEIN,URINE Negative (NEGATIVE)
[2020-03-02 16:38] LABS: APPEARANCE,URINE CLEAR (CLEAR)
[2020-03-02 16:48] LABS: BACTERIA,URINE Rare /HPF (None Seen); SQUAMOUS EPITHELIAL CELL,UR Rare /HPF (0-2)
[2020-03-02] MEDS: CEFTRIAXONE SODIUM 1 GM IVP SCH (18:12)
[2020-03-02 19:39] VITALS: BP 121/77
[2020-03-03] VITALS: BP 137/94
[2020-03-03 04:00] VITALS: BP 121/85
[2020-03-03 06:09] LABS: BASOPHILS % (AUTO) 1.2 % (0.0-5.0); EOSINOPHILS % (AUTO) 3.5 % (0.0-8.0); HEMATOCRIT 24.7 % (42-54); LYMPHOCYTES % (AUTO) 35.2 % (21.0-51.0); MEAN CORPUSCULAR HEMOGLOBIN 30.2 pg (27.0-33.0); MEAN CORPUSCULAR VOLUME 88.8 fL (79-99); MONOCYTES % (AUTO) 13.8 % (3.0-13.0); NEUTROPHILS % (AUTO) 46.1 % (40.0-77.0); RED BLOOD CELL COUNT(AUTO) 2.78 MIL/uL (4.50-6.20); RED CELL DISTRIBUTION WIDTH 14.5 % (11.0-15.5)
[2020-03-03 06:20] LABS: ALBUMIN 1.6 g/dL (3.5-5.0); CREATININE 1.1 mg/dL (0.5-1.5); POTASSIUM 3.8 mmol/L (3.5-5.1); TOTAL PROTEIN, SERUM 6.4 g/dL (6.0-8.3)
[2020-03-03 06:43] LABS: PLATELET COUNT (AUTO) 96 K/uL (130-400)
[2020-03-03 08:18] VITALS: BP 138/91
[2020-03-03] MEDS: VENLAFAXINE HCL XR 37.5 MG CAP PO SCH (09:54)
[2020-03-03] MEDS: FOLIC ACID 1 MG TABLET PO SCH (09:54)
[2020-03-03] MEDS: LACTULOSE 20 GM/30 ML UDCUP PO SCH ×2 (09:55→20:04)
[2020-03-03] MEDS: PANTOPRAZOLE 40 MG/VIAL IVP SCH ×2 (09:55→20:04)
[2020-03-03 12:34] VITALS: BP 125/85
[2020-03-03 17:16] VITALS: BP 119/83
[2020-03-03] MEDS: CEFTRIAXONE SODIUM 1 GM IVP SCH (17:57)
[2020-03-03 20:00] VITALS: BP 128/87
[2020-03-03] MEDS: ONDANSETRON HCL 4 MG/2 ML VIAL IV PRN (21:30)
[2020-03-04] VITALS (7 sets, daily range): BP systolic 116–139; BP diastolic 81–95
[2020-03-04 05:57] LABS: BASOPHILS % (AUTO) 1.1 % (0.0-5.0); EOSINOPHILS % (AUTO) 3.4 % (0.0-8.0); LYMPHOCYTES % (AUTO) 39.1 % (21.0-51.0); MEAN CORPUSCULAR HEMOGLOBIN 30.5 pg (27.0-33.0); MEAN CORPUSCULAR VOLUME 89.6 fL (79-99); MONOCYTES % (AUTO) 13.5 % (3.0-13.0); NEUTROPHILS % (AUTO) 42.7 % (40.0-77.0); PLATELET COUNT (AUTO) 72 K/uL (130-400); RED BLOOD CELL COUNT(AUTO) 2.79 MIL/uL (4.50-6.20); RED CELL DISTRIBUTION WIDTH 14.4 % (11.0-15.5); WHITE BLOOD COUNT (AUTO) 5.2 K/uL (4.8-10.8)
[2020-03-04 06:02] LABS: ALBUMIN 1.7 g/dL (3.5-5.0); BILIRUBIN,TOTAL 1.5 mg/dL (0.2-1.0); POTASSIUM 3.6 mmol/L (3.5-5.1); TOTAL PROTEIN, SERUM 6.8 g/dL (6.0-8.3)
[2020-03-04] MEDS ORDERED: RISPERIDONE 1 MG TABLET PO SCH (10:00)
[2020-03-04] MEDS: VENLAFAXINE HCL XR 37.5 MG CAP PO SCH (10:01)
[2020-03-04] MEDS: LACTULOSE 20 GM/30 ML UDCUP PO SCH ×2 (10:01→21:00)
[2020-03-04] MEDS: FOLIC ACID 1 MG TABLET PO SCH (10:01)
[2020-03-04] MEDS: PANTOPRAZOLE 40 MG/VIAL IVP SCH ×2 (10:01→22:39)
[2020-03-04] MEDS: ONDANSETRON HCL 4 MG/2 ML VIAL IV PRN (10:01)
[2020-03-04] MEDS: RISPERIDONE 1 MG TABLET PO SCH (10:04)
[2020-03-04] MEDS: CEFTRIAXONE SODIUM 1 GM IVP SCH (17:31)
[2020-03-05 04:20] VITALS: BP 131/88
[2020-03-05 05:41] LABS: BASOPHILS % (AUTO) 1.1 % (0.0-5.0); EOSINOPHILS % (AUTO) 4.5 % (0.0-8.0); HEMATOCRIT 25.4 % (42-54); MEAN CORPUSCULAR HEMOGLOBIN 30.1 pg (27.0-33.0); MEAN CORPUSCULAR HGB CONC 33.5 g/dL (32.0-36.0); MEAN CORPUSCULAR VOLUME 90.1 fL (79-99); MONOCYTES % (AUTO) 14.9 % (3.0-13.0); NEUTROPHILS % (AUTO) 42.3 % (40.0-77.0); PLATELET COUNT (AUTO) 47 K/uL (130-400); RED BLOOD CELL COUNT(AUTO) 2.82 MIL/uL (4.50-6.20); RED CELL DISTRIBUTION WIDTH 14.2 % (11.0-15.5); WHITE BLOOD COUNT (AUTO) 5.6 K/uL (4.8-10.8)
[2020-03-05 05:48] LABS: MAGNESIUM 1.8 mg/dL (1.80-2.40); POTASSIUM 3.9 mmol/L (3.5-5.1)
[2020-03-05 07:50] VITALS: BP 135/86
[2020-03-05] MEDS: FOLIC ACID 1 MG TABLET PO SCH (08:06)
[2020-03-05] MEDS: LACTULOSE 20 GM/30 ML UDCUP PO SCH ×2 (08:06→21:24)
[2020-03-05] MEDS: VENLAFAXINE HCL XR 37.5 MG CAP PO SCH (08:06)
[2020-03-05] MEDS: RISPERIDONE 1 MG TABLET PO SCH (08:06)
[2020-03-05] MEDS: PANTOPRAZOLE 40 MG/VIAL IVP SCH ×2 (09:00→21:24)
[2020-03-05 12:06] VITALS: BP 103/65
[2020-03-05] MEDS: AMOXICILLIN 500 MG CAPSULE PO SCH (16:00)
[2020-03-05 16:28] VITALS: BP 121/80
[2020-03-05] MEDS: TRAMADOL HCL 50 MG TABLET PO PRN (18:22)
[2020-03-05 20:13] VITALS: BP 111/67
[2020-03-05 23:55] VITALS: BP 118/90
[2020-03-06] MEDS: AMOXICILLIN 500 MG CAPSULE PO SCH ×3 (02:13→16:47)
[2020-03-06 04:05] VITALS: BP 134/80
[2020-03-06 05:35] LABS: BASOPHILS % (AUTO) 1.2 % (0.0-5.0); EOSINOPHILS % (AUTO) 4.4 % (0.0-8.0); HEMATOCRIT 25.4 % (42-54); LYMPHOCYTES % (AUTO) 36.4 % (21.0-51.0); MEAN CORPUSCULAR HEMOGLOBIN 29.9 pg (27.0-33.0); MEAN CORPUSCULAR HGB CONC 32.3 g/dL (32.0-36.0); MEAN CORPUSCULAR VOLUME 92.7 fL (79-99); MONOCYTES % (AUTO) 12.6 % (3.0-13.0); NEUTROPHILS % (AUTO) 45.2 % (40.0-77.0); PLATELET COUNT (AUTO) 24 K/uL (130-400); RED BLOOD CELL COUNT(AUTO) 2.74 MIL/uL (4.50-6.20); RED CELL DISTRIBUTION WIDTH 14.3 % (11.0-15.5); WHITE BLOOD COUNT (AUTO) 5.2 K/uL (4.8-10.8)
[2020-03-06 05:48] LABS: POTASSIUM 3.8 mmol/L (3.5-5.1)
[2020-03-06 05:49] LABS: INR 1.41 (0.85-1.15); PARTIAL THROMBOPLASTIN TIME 36.7 SEC (26.3-35.5)
[2020-03-06] MEDS ORDERED: COMPOUND IV MISC 1 EACH IVSOLN MISC PRN (07:15)
[2020-03-06 08:10] VITALS: BP 137/96
[2020-03-06] MEDS: LACTULOSE 20 GM/30 ML UDCUP PO SCH ×2 (08:54→21:25)
[2020-03-06] MEDS: THIAMINE HCL 100 MG TABLET PO SCH (08:54)
[2020-03-06] MEDS: FOLIC ACID 1 MG TABLET PO SCH (08:54)
[2020-03-06] MEDS: PANTOPRAZOLE 40 MG/VIAL IVP SCH ×2 (08:54→21:25)
[2020-03-06] MEDS: VENLAFAXINE HCL XR 37.5 MG CAP PO SCH (08:55)
[2020-03-06] MEDS: RISPERIDONE 1 MG TABLET PO SCH (08:55)
[2020-03-06] MEDS: CYANOCOBALAMIN (VITAMIN B-12) 1,000 MCG TABLET PO SCH (08:55)
[2020-03-06] MEDS ORDERED: IRON SUCROSE COMPLEX 100 MG in SODIUM CHLORIDE 0.9% 50 ML IV SCH (09:00)
[2020-03-06] MEDS: TRAMADOL HCL 50 MG TABLET PO PRN (11:14)
[2020-03-06] MEDS: IRON SUCROSE COMPLEX 100 MG in SODIUM CHLORIDE 0.9% 50 ML IV SCH (11:46)
[2020-03-06 11:52] VITALS: BP 125/87
[2020-03-06] MEDS ORDERED: SODIUM CHLORIDE 0.9% 250 ML IV ONE (15:33)
[2020-03-06 16:10] VITALS: BP 121/83
[2020-03-06 19:00] VITALS: BP 128/81
[2020-03-06 23:57] VITALS: BP 134/75
[2020-03-07] VITALS (11 sets, daily range): BP systolic 98–137; BP diastolic 36–95
[2020-03-07] MEDS: AMOXICILLIN 500 MG CAPSULE PO SCH ×4 (00:18→21:45)
[2020-03-07 07:34] LABS: HEMATOCRIT 25.8 % (42-54); MEAN CORPUSCULAR HEMOGLOBIN 30.3 pg (27.0-33.0); MEAN CORPUSCULAR HGB CONC 33.3 g/dL (32.0-36.0); MEAN CORPUSCULAR VOLUME 90.8 fL (79-99); RED BLOOD CELL COUNT(AUTO) 2.84 MIL/uL (4.50-6.20); RED CELL DISTRIBUTION WIDTH 14.4 % (11.0-15.5); WHITE BLOOD COUNT (AUTO) 5.4 K/uL (4.8-10.8)
[2020-03-07 07:39] LABS: CREATININE 0.9 mg/dL (0.5-1.5); POTASSIUM 3.5 mmol/L (3.5-5.1)
[2020-03-07 07:44] LABS: INR 1.51 (0.85-1.15); PROTHROMBIN TIME 16.1 SEC (9.6-11.6)
[2020-03-07] MEDS: FOLIC ACID 1 MG TABLET PO SCH (10:49)
[2020-03-07] MEDS: TAMSULOSIN HCL 0.4 MG CAP.ER.24H PO SCH (10:49)
[2020-03-07] MEDS: VENLAFAXINE HCL XR 37.5 MG CAP PO SCH (10:49)
[2020-03-07] MEDS: PANTOPRAZOLE 40 MG/VIAL IVP SCH ×2 (10:49→21:45)
[2020-03-07] MEDS: THIAMINE HCL 100 MG TABLET PO SCH (10:49)
[2020-03-07] MEDS: CYANOCOBALAMIN (VITAMIN B-12) 1,000 MCG TABLET PO SCH (10:49)
[2020-03-07] MEDS: RISPERIDONE 1 MG TABLET PO SCH (10:49)
[2020-03-07] MEDS: TRAMADOL HCL 50 MG TABLET PO PRN (10:50)
[2020-03-07] MEDS ORDERED: ALBUMIN (HUMAN) 25% 200 ML IV SCH (11:15)
[2020-03-07] MEDS: LACTULOSE 20 GM/30 ML UDCUP PO SCH (12:00)
[2020-03-07] MEDS: IRON SUCROSE COMPLEX 100 MG in SODIUM CHLORIDE 0.9% 50 ML IV SCH (15:05)
[2020-03-07 15:53] LABS: ALBUMIN,BODY FLUID 0.6 g/dL
[2020-03-07 16:50] LABS: SPECIMENTYPE,BODY FLUID ASCITES
[2020-03-07 16:51] LABS: APPEARANCE BODY FLUID SLIGHTLY CLOUDY (CLEAR); BODY FLUID WBC 49 /cu. mm.; COLOR,BODY FLUID YELLOW (LT YELLOW)
[2020-03-07 16:52] LABS: BODY FLUID RBC 886 /cu. mm.
[2020-03-07 17:22] LABS: BF LYMPHOCYTE 61 %; BF OTHER CELLS 6
[2020-03-07 21:28] LABS: TOTAL VOLUME,BODY FLUID 6500 mL
[2020-03-08] VITALS (7 sets, daily range): BP systolic 93–127; BP diastolic 66–85
[2020-03-08] MEDS: TAMSULOSIN HCL 0.4 MG CAP.ER.24H PO SCH (01:08)
[2020-03-08] MEDS: AMOXICILLIN 500 MG CAPSULE PO SCH ×3 (06:04→22:52)
[2020-03-08] MEDS: PANTOPRAZOLE 40 MG/VIAL IVP SCH ×2 (08:48→19:44)
[2020-03-08] MEDS: RISPERIDONE 1 MG TABLET PO SCH (08:49)
[2020-03-08] MEDS: CYANOCOBALAMIN (VITAMIN B-12) 1,000 MCG TABLET PO SCH (08:49)
[2020-03-08] MEDS: THIAMINE HCL 100 MG TABLET PO SCH (08:49)
[2020-03-08] MEDS: FUROSEMIDE 40 MG TABLET PO SCH ×2 (08:49→16:18)
[2020-03-08] MEDS: VENLAFAXINE HCL XR 37.5 MG CAP PO SCH (08:49)
[2020-03-08] MEDS: LACTULOSE 20 GM/30 ML UDCUP PO SCH ×2 (08:50→12:05)
[2020-03-08] MEDS: FOLIC ACID 1 MG TABLET PO SCH (08:50)
[2020-03-08] MEDS ORDERED: SPIRONOLACTONE 25 MG TAB PO SCH (09:00)
[2020-03-08] MEDS: IRON SUCROSE COMPLEX 100 MG in SODIUM CHLORIDE 0.9% 50 ML IV SCH (14:34)
[2020-03-09 04:30] VITALS: BP 121/82
[2020-03-09 05:24] LABS: HEMATOCRIT 23.6 % (42-54); MEAN CORPUSCULAR HEMOGLOBIN 30.3 pg (27.0-33.0); MEAN CORPUSCULAR HGB CONC 33.9 g/dL (32.0-36.0); MEAN CORPUSCULAR VOLUME 89.4 fL (79-99); PLATELET COUNT (AUTO) 37 K/uL (130-400); RED BLOOD CELL COUNT(AUTO) 2.64 MIL/uL (4.50-6.20); WHITE BLOOD COUNT (AUTO) 5.4 K/uL (4.8-10.8)
[2020-03-09 05:50] LABS: MAGNESIUM 1.7 mg/dL (1.80-2.40); PHOSPHORUS 3.2 mg/dL (2.5-4.9); POTASSIUM 3.3 mmol/L (3.5-5.1)
[2020-03-09] MEDS: AMOXICILLIN 500 MG CAPSULE PO SCH ×3 (06:02→22:29)
[2020-03-09 07:48] VITALS: BP 129/84
[2020-03-09] MEDS: CYANOCOBALAMIN (VITAMIN B-12) 1,000 MCG TABLET PO SCH (09:33)
[2020-03-09] MEDS: LACTULOSE 20 GM/30 ML UDCUP PO SCH ×2 (09:33→13:36)
[2020-03-09] MEDS: PANTOPRAZOLE 40 MG/VIAL IVP SCH ×2 (09:33→19:44)
[2020-03-09] MEDS: THIAMINE HCL 100 MG TABLET PO SCH (09:33)
[2020-03-09] MEDS: FOLIC ACID 1 MG TABLET PO SCH (09:33)
[2020-03-09] MEDS: RISPERIDONE 1 MG TABLET PO SCH (09:34)
[2020-03-09] MEDS: VENLAFAXINE HCL XR 37.5 MG CAP PO SCH (09:34)
[2020-03-09] MEDS: FUROSEMIDE 40 MG TABLET PO SCH ×2 (09:34→16:18)
[2020-03-09] MEDS: SPIRONOLACTONE 25 MG TAB PO SCH ×2 (09:36→16:18)
[2020-03-09 11:00] VITALS: BP 124/71
[2020-03-09] MEDS: TRAMADOL HCL 50 MG TABLET PO PRN (13:37)
[2020-03-09] MEDS: IRON SUCROSE COMPLEX 100 MG in SODIUM CHLORIDE 0.9% 50 ML IV SCH (13:37)
[2020-03-09 16:06] VITALS: BP 111/81
[2020-03-09 19:10] VITALS: BP 103/80
[2020-03-09 23:52] VITALS: BP 125/85
[2020-03-10 03:33] VITALS: BP 133/91
[2020-03-10 06:36] VITALS: BP 130/85
[2020-03-10] MEDS: SPIRONOLACTONE 25 MG TAB PO SCH ×2 (06:38→16:37)
[2020-03-10] MEDS: AMOXICILLIN 500 MG CAPSULE PO SCH ×3 (06:38→21:48)
[2020-03-10 08:00] VITALS: BP 104/80
[2020-03-10] MEDS: VENLAFAXINE HCL XR 37.5 MG CAP PO SCH (09:30)
[2020-03-10] MEDS: IRON SUCROSE COMPLEX 100 MG in SODIUM CHLORIDE 0.9% 50 ML IV SCH (09:30)
[2020-03-10] MEDS: PANTOPRAZOLE 40 MG/VIAL IVP SCH ×2 (09:30→21:48)
[2020-03-10] MEDS: LACTULOSE 20 GM/30 ML UDCUP PO SCH ×2 (09:31→14:53)
[2020-03-10] MEDS: FOLIC ACID 1 MG TABLET PO SCH (09:31)
[2020-03-10] MEDS: FUROSEMIDE 40 MG TABLET PO SCH ×2 (09:31→16:38)
[2020-03-10] MEDS: RISPERIDONE 1 MG TABLET PO SCH (09:31)
[2020-03-10] MEDS: CYANOCOBALAMIN (VITAMIN B-12) 1,000 MCG TABLET PO SCH (09:31)
[2020-03-10] MEDS: THIAMINE HCL 100 MG TABLET PO SCH (09:31)
[2020-03-10] MEDS: RIFAXIMIN 200 MG TABLET PO SCH ×2 (09:32→21:49)
[2020-03-10] MEDS: MAGNESIUM 2GM PREMIX 50ML 50 ML IV PRN (10:59)
[2020-03-10 11:00] VITALS: BP 119/90
[2020-03-10] MEDS ORDERED: POTASSIUM CHLORIDE 20 MEQ ERTAB PO SCH (11:15)
[2020-03-10 16:00] VITALS: BP 108/77
[2020-03-10 20:00] VITALS: BP 120/81
[2020-03-11] VITALS: BP 128/87
[2020-03-11] MEDS ORDERED: HYDROXYZINE HCL 25 MG TABLET PO SCH (01:00)
[2020-03-11] MEDS ORDERED: HYDROXYZINE HCL 25 MG TABLET ONE (01:13)
[2020-03-11 04:00] VITALS: BP 142/92
[2020-03-11 06:18] LABS: MAGNESIUM 1.6 mg/dL (1.80-2.40); POTASSIUM 3.2 mmol/L (3.5-5.1)
[2020-03-11] MEDS: AMOXICILLIN 500 MG CAPSULE PO SCH ×3 (06:52→22:50)
[2020-03-11] MEDS: SPIRONOLACTONE 25 MG TAB PO SCH ×3 (06:53→16:30)
[2020-03-11 07:30] VITALS: BP 125/87
[2020-03-11] MEDS: RIFAXIMIN 200 MG TABLET PO SCH (08:51)
[2020-03-11] MEDS: LACTULOSE 20 GM/30 ML UDCUP PO SCH ×3 (08:51→13:00)
[2020-03-11] MEDS: PANTOPRAZOLE 40 MG/VIAL IVP SCH (08:51)
[2020-03-11] MEDS: CYANOCOBALAMIN (VITAMIN B-12) 1,000 MCG TABLET PO SCH (08:52)
[2020-03-11] MEDS: RISPERIDONE 1 MG TABLET PO SCH (08:54)
[2020-03-11] MEDS: FUROSEMIDE 40 MG TABLET PO SCH ×2 (08:54→17:21)
[2020-03-11] MEDS: VENLAFAXINE HCL XR 37.5 MG CAP PO SCH (08:54)
[2020-03-11] MEDS: FOLIC ACID 1 MG TABLET PO SCH (08:55)
[2020-03-11] MEDS: THIAMINE HCL 100 MG TABLET PO SCH (08:55)
[2020-03-11] MEDS: IRON SUCROSE COMPLEX 100 MG in SODIUM CHLORIDE 0.9% 50 ML IV SCH (08:55)
[2020-03-11] MEDS ORDERED: MAGNESIUM OXIDE 400 MG TABLET PO SCH (09:00)
[2020-03-11] MEDS: TRAMADOL HCL 50 MG TABLET PO PRN (11:53)
[2020-03-11] MEDS: MAGNESIUM 2GM PREMIX 50ML 50 ML IV PRN (11:53)
[2020-03-11 12:00] VITALS: BP 126/81
[2020-03-11] MEDS: TAMSULOSIN HCL 0.4 MG CAP.ER.24H PO SCH (14:34)
[2020-03-11 16:00] VITALS: BP 134/86
[2020-03-11 20:00] VITALS: BP 110/74
[2020-03-11] MEDS ORDERED: BETHANECHOL CHLORIDE 25 MG TABLET PO SCH (20:30)
[2020-03-11] MEDS: QUETIAPINE FUMARATE 25 MG TAB PO SCH (21:40)
[2020-03-11] MEDS: RIFAXIMIN 550 MG TABLET PO SCH (21:40)
[2020-03-11] MEDS: PANTOPRAZOLE SODIUM 40 MG TABLET.DR PO SCH (21:41)
[2020-03-11] MEDS ORDERED: LIDOCAINE HCL-MPF 1% 2ML VIAL IV PRN (23:30)
[2020-03-11] MEDS ORDERED: POTASSIUM CHLORIDE 20MEQ/100ML 100 ML IV PRN (23:30)
[2020-03-11] MEDS ORDERED: POTASSIUM CHLORIDE 10% ELIXIR 20 MEQ/15 ML UDCUP PO PRN (23:30)
[2020-03-12] VITALS (7 sets, daily range): BP systolic 104–127; BP diastolic 68–84
[2020-03-12] MEDS: TAMSULOSIN HCL 0.4 MG CAP.ER.24H PO SCH (04:25)
[2020-03-12 06:05] LABS: HEMATOCRIT 26.1 % (42-54); MEAN CORPUSCULAR HEMOGLOBIN 29.7 pg (27.0-33.0); MEAN CORPUSCULAR HGB CONC 33.3 g/dL (32.0-36.0); MEAN CORPUSCULAR VOLUME 89.1 fL (79-99); RED BLOOD CELL COUNT(AUTO) 2.93 MIL/uL (4.50-6.20); RED CELL DISTRIBUTION WIDTH 14.1 % (11.0-15.5)
[2020-03-12] MEDS: AMOXICILLIN 500 MG CAPSULE PO SCH ×3 (06:06→20:55)
[2020-03-12 06:22] LABS: ALBUMIN 2.2 g/dL (3.5-5.0); BILIRUBIN,TOTAL 1.6 mg/dL (0.2-1.0); CREATININE 1.8 mg/dL (0.5-1.5); MAGNESIUM 1.4 mg/dL (1.80-2.40); POTASSIUM 3.2 mmol/L (3.5-5.1); TOTAL PROTEIN, SERUM 7.3 g/dL (6.0-8.3)
[2020-03-12 06:33] LABS: INR 1.5 (0.85-1.15); PARTIAL THROMBOPLASTIN TIME 39.5 SEC (26.3-35.5); PROTHROMBIN TIME 15.9 SEC (9.6-11.6)
[2020-03-12] MEDS: SPIRONOLACTONE 25 MG TAB PO SCH ×2 (06:36→17:15)
[2020-03-12] MEDS: MAGNESIUM 2GM PREMIX 50ML 50 ML IV PRN (06:54)
[2020-03-12] MEDS ORDERED: MAGNESIUM OXIDE 400 MG TABLET PO SCH (09:00)
[2020-03-12] MEDS ORDERED: RISPERIDONE 1 MG TABLET PO SCH (09:00)
[2020-03-12] MEDS: RIFAXIMIN 550 MG TABLET PO SCH ×2 (09:05→20:55)
[2020-03-12] MEDS: THIAMINE HCL 100 MG TABLET PO SCH (09:05)
[2020-03-12] MEDS: CITALOPRAM 20 MG TABLET PO SCH (09:05)
[2020-03-12] MEDS: FUROSEMIDE 40 MG TABLET PO SCH ×2 (09:06→17:16)
[2020-03-12] MEDS: PANTOPRAZOLE SODIUM 40 MG TABLET.DR PO SCH ×2 (09:06→20:55)
[2020-03-12] MEDS: VENLAFAXINE HCL XR 37.5 MG CAP PO SCH (09:06)
[2020-03-12] MEDS: CYANOCOBALAMIN (VITAMIN B-12) 1,000 MCG TABLET PO SCH (09:06)
[2020-03-12] MEDS: FOLIC ACID 1 MG TABLET PO SCH (09:06)
[2020-03-12] MEDS: LACTULOSE 20 GM/30 ML UDCUP PO SCH (09:07)
[2020-03-12] MEDS ORDERED: MAGNESIUM 4GM PREMIX 100ML 100 ML IV PRN (14:45)
[2020-03-12] MEDS ORDERED: MAGNESIUM 4GM PREMIX 100ML 100 ML IV SCH (15:15)
[2020-03-12] MEDS ORDERED: POTASSIUM CHLORIDE 20 MEQ ERTAB PO SCH (15:55)
[2020-03-12] MEDS: POTASSIUM CHLORIDE 20 MEQ ERTAB PO SCH (20:54)
[2020-03-12] MEDS: QUETIAPINE FUMARATE 25 MG TAB PO SCH (20:54)
[2020-03-13] VITALS (8 sets, daily range): BP systolic 106–120; BP diastolic 67–80
[2020-03-13] MEDS: TRAMADOL HCL 50 MG TABLET PO PRN ×2 (03:14→09:42)
[2020-03-13] MEDS: AMOXICILLIN 500 MG CAPSULE PO SCH ×3 (05:15→20:44)
[2020-03-13] MEDS: TAMSULOSIN HCL 0.4 MG CAP.ER.24H PO SCH (05:15)
[2020-03-13] MEDS: SPIRONOLACTONE 25 MG TAB PO SCH ×2 (05:15→20:37)
[2020-03-13] MEDS: MAGNESIUM 2GM PREMIX 50ML 50 ML IV PRN (08:14)
[2020-03-13] MEDS: FUROSEMIDE 40 MG TABLET PO SCH ×2 (09:43→20:38)
[2020-03-13] MEDS: LACTULOSE 20 GM/30 ML UDCUP PO SCH (09:43)
[2020-03-13] MEDS: CYANOCOBALAMIN (VITAMIN B-12) 1,000 MCG TABLET PO SCH (09:43)
[2020-03-13] MEDS: RIFAXIMIN 550 MG TABLET PO SCH ×2 (09:43→20:35)
[2020-03-13] MEDS: VENLAFAXINE HCL XR 37.5 MG CAP PO SCH (09:44)
[2020-03-13] MEDS: FOLIC ACID 1 MG TABLET PO SCH (09:44)
[2020-03-13] MEDS: PANTOPRAZOLE SODIUM 40 MG TABLET.DR PO SCH ×2 (09:44→20:36)
[2020-03-13] MEDS: CITALOPRAM 20 MG TABLET PO SCH (09:44)
[2020-03-13] MEDS: THIAMINE HCL 100 MG TABLET PO SCH (09:44)
[2020-03-13] MEDS: POTASSIUM CHLORIDE 20 MEQ ERTAB PO SCH (09:49)
[2020-03-13] MEDS ORDERED: HALOPERIDOL LACTATE 5 MG/ML VIAL ONE ×2 (15:44→16:00)
[2020-03-13] MEDS ORDERED: DiphenhydrAMINE HCL 50 MG/ML VIAL ONE (15:44)
[2020-03-13] MEDS ORDERED: HALOPERIDOL DECANOATE 100 MG/ML ML IM PRN (15:45)
[2020-03-13] MEDS ORDERED: DiphenhydrAMINE HCL 50 MG/ML VIAL IV PRN (15:45)
[2020-03-13] MEDS ORDERED: HALOPERIDOL LACTATE 5 MG/ML VIAL IM PRN ×2 (16:00)
[2020-03-13] MEDS: BENZTROPINE MESYLATE 0.5 MG TAB PO SCH (20:36)
[2020-03-13] MEDS: QUETIAPINE FUMARATE 25 MG TAB PO SCH (20:36)
[2020-03-13] MEDS: MAGNESIUM OXIDE 400 MG TABLET PO SCH (20:36)
[2020-03-14 03:51] VITALS: BP 124/90
[2020-03-14] MEDS: SPIRONOLACTONE 25 MG TAB PO SCH ×2 (05:09→16:54)
[2020-03-14] MEDS: TAMSULOSIN HCL 0.4 MG CAP.ER.24H PO SCH (05:09)
[2020-03-14] MEDS: AMOXICILLIN 500 MG CAPSULE PO SCH ×2 (05:09→16:01)
[2020-03-14 09:11] VITALS: BP 113/80
[2020-03-14] MEDS: BENZTROPINE MESYLATE 0.5 MG TAB PO SCH ×2 (09:17→19:49)
[2020-03-14] MEDS: LACTULOSE 20 GM/30 ML UDCUP PO SCH (09:17)
[2020-03-14] MEDS: FUROSEMIDE 40 MG TABLET PO SCH ×2 (09:18→16:54)
[2020-03-14] MEDS: POTASSIUM CHLORIDE 20 MEQ ERTAB PO SCH (09:20)
[2020-03-14] MEDS: FOLIC ACID 1 MG TABLET PO SCH (09:20)
[2020-03-14] MEDS: CITALOPRAM 20 MG TABLET PO SCH (09:20)
[2020-03-14] MEDS: VENLAFAXINE HCL XR 37.5 MG CAP PO SCH (09:20)
[2020-03-14] MEDS: CYANOCOBALAMIN (VITAMIN B-12) 1,000 MCG TABLET PO SCH (09:20)
[2020-03-14] MEDS: RIFAXIMIN 550 MG TABLET PO SCH ×2 (09:20→19:49)
[2020-03-14] MEDS: THIAMINE HCL 100 MG TABLET PO SCH (09:20)
[2020-03-14] MEDS: PANTOPRAZOLE SODIUM 40 MG TABLET.DR PO SCH ×2 (09:20→19:49)
[2020-03-14 11:54] VITALS: BP 108/74
[2020-03-14 12:28] LABS: HEMATOCRIT 26.1 % (42-54); MEAN CORPUSCULAR HEMOGLOBIN 29.7 pg (27.0-33.0); RED BLOOD CELL COUNT(AUTO) 2.9 MIL/uL (4.50-6.20); RED CELL DISTRIBUTION WIDTH 14.3 % (11.0-15.5); WHITE BLOOD COUNT (AUTO) 5.2 K/uL (4.8-10.8)
[2020-03-14] MEDS: HALOPERIDOL LACTATE 5 MG/ML VIAL IM PRN (12:28)
[2020-03-14 12:45] LABS: ALANINE AMINOTRANSFERASE 15 U/L (12-78); ALBUMIN 2.1 g/dL (3.5-5.0); ALCOHOL, BLOOD < 3 mg/dL (0-10); ASPARTATE AMINOTRANSFERASE 27 U/L (10-37); BILIRUBIN,TOTAL 2.2 mg/dL (0.2-1.0); CARBON DIOXIDE 27 mmol/L (21-32); CHLORIDE 99 mmol/L (101-111); CREATINE KINASE, TOTAL 55 U/L (21-232); CREATININE 1.2 mg/dL (0.5-1.5); GLOMERULAR FILTR. RATE CALC 68 mL/min (>60); GLUCOSE,RANDOM 157 mg/dL (70-105); POTASSIUM 3.8 mmol/L (3.5-5.1); SODIUM SERUM 134 mmol/L (136-145); TOTAL PROTEIN, SERUM 7.6 g/dL (6.0-8.3); UREA NITROGEN, BLOOD 11 mg/dL (7-18)
[2020-03-14 17:20] VITALS: BP 119/60
[2020-03-14] MEDS: QUETIAPINE FUMARATE 25 MG TAB PO SCH (19:48)
[2020-03-14] MEDS: MAGNESIUM OXIDE 400 MG TABLET PO SCH (19:48)
[2020-03-14 19:52] VITALS: BP 104/76
[2020-03-14 23:19] VITALS: BP 108/63
[2020-03-15 03:12] VITALS: BP 108/76
[2020-03-15] MEDS: TAMSULOSIN HCL 0.4 MG CAP.ER.24H PO SCH (04:10)
[2020-03-15] MEDS: AMOXICILLIN 500 MG CAPSULE PO SCH ×2 (05:46)
[2020-03-15 07:52] VITALS: BP 117/82
[2020-03-15] MEDS: LACTULOSE 20 GM/30 ML UDCUP PO SCH ×4 (08:20→21:00)
[2020-03-15] MEDS: RIFAXIMIN 550 MG TABLET PO SCH ×2 (08:21→22:06)
[2020-03-15] MEDS: PANTOPRAZOLE SODIUM 40 MG TABLET.DR PO SCH ×2 (08:21→22:06)
[2020-03-15] MEDS: CITALOPRAM 20 MG TABLET PO SCH (08:21)
[2020-03-15] MEDS: VENLAFAXINE HCL XR 37.5 MG CAP PO SCH (08:21)
[2020-03-15] MEDS: CYANOCOBALAMIN (VITAMIN B-12) 1,000 MCG TABLET PO SCH (08:21)
[2020-03-15] MEDS: FOLIC ACID 1 MG TABLET PO SCH (08:21)
[2020-03-15] MEDS: BENZTROPINE MESYLATE 0.5 MG TAB PO SCH ×2 (08:21→22:07)
[2020-03-15] MEDS: SPIRONOLACTONE 25 MG TAB PO SCH ×2 (08:21→16:07)
[2020-03-15] MEDS: THIAMINE HCL 100 MG TABLET PO SCH (08:22)
[2020-03-15] MEDS: FUROSEMIDE 40 MG TABLET PO SCH ×2 (08:23→16:08)
[2020-03-15] MEDS: HALOPERIDOL LACTATE 5 MG/ML VIAL IM PRN (08:23)
[2020-03-15 12:11] VITALS: BP 100/68
[2020-03-15 15:52] VITALS: BP 110/70
[2020-03-15 20:15] VITALS: BP 117/77
[2020-03-15] MEDS: POTASSIUM CHLORIDE 20 MEQ ERTAB PO SCH (21:00)
[2020-03-15] MEDS: MAGNESIUM OXIDE 400 MG TABLET PO SCH (22:05)
[2020-03-15] MEDS: QUETIAPINE FUMARATE 25 MG TAB PO SCH (22:06)
[2020-03-15 23:24] VITALS: BP 106/73
[2020-03-16 03:40] LABS: BASOPHILS % (AUTO) 0.9 % (0.0-5.0); EOSINOPHILS % (AUTO) 1.7 % (0.0-8.0); HEMATOCRIT 24.8 % (42-54); LYMPHOCYTES % (AUTO) 42.4 % (21.0-51.0); MEAN CORPUSCULAR HEMOGLOBIN 30.2 pg (27.0-33.0); MEAN CORPUSCULAR HGB CONC 33.9 g/dL (32.0-36.0); MEAN CORPUSCULAR VOLUME 89.2 fL (79-99); NEUTROPHILS % (AUTO) 46.4 % (40.0-77.0); PLATELET COUNT (AUTO) 34 K/uL (130-400); RED BLOOD CELL COUNT(AUTO) 2.78 MIL/uL (4.50-6.20); RED CELL DISTRIBUTION WIDTH 13.7 % (11.0-15.5); WHITE BLOOD COUNT (AUTO) 5.4 K/uL (4.8-10.8)
[2020-03-16 04:00] VITALS: BP 112/76
[2020-03-16 04:08] LABS: ALBUMIN 2.2 g/dL (3.5-5.0); BILIRUBIN,TOTAL 1.6 mg/dL (0.2-1.0); CREATININE 1.3 mg/dL (0.5-1.5); POTASSIUM 3.7 mmol/L (3.5-5.1); TOTAL PROTEIN, SERUM 7.4 g/dL (6.0-8.3)
[2020-03-16] MEDS: TAMSULOSIN HCL 0.4 MG CAP.ER.24H PO SCH (05:40)
[2020-03-16] MEDS: SPIRONOLACTONE 25 MG TAB PO SCH ×2 (07:30→16:30)
[2020-03-16 08:00] VITALS: BP 117/79
[2020-03-16] MEDS: RIFAXIMIN 550 MG TABLET PO SCH ×2 (09:00→20:52)
[2020-03-16] MEDS: FOLIC ACID 1 MG TABLET PO SCH (09:28)
[2020-03-16] MEDS: QUETIAPINE FUMARATE 25 MG TAB PO SCH ×2 (09:29→20:52)
[2020-03-16] MEDS: PANTOPRAZOLE SODIUM 40 MG TABLET.DR PO SCH ×2 (09:30→20:52)
[2020-03-16] MEDS: CYANOCOBALAMIN (VITAMIN B-12) 1,000 MCG TABLET PO SCH (09:31)
[2020-03-16] MEDS: THIAMINE HCL 100 MG TABLET PO SCH (09:31)
[2020-03-16] MEDS: FUROSEMIDE 40 MG TABLET PO SCH ×2 (09:31→17:00)
[2020-03-16] MEDS: CITALOPRAM 20 MG TABLET PO SCH (09:32)
[2020-03-16] MEDS: VENLAFAXINE HCL XR 37.5 MG CAP PO SCH (09:32)
[2020-03-16] MEDS: LACTULOSE 20 GM/30 ML UDCUP PO SCH ×4 (09:33→20:53)
[2020-03-16] MEDS: BENZTROPINE MESYLATE 0.5 MG TAB PO SCH ×2 (09:33→20:52)
[2020-03-16 11:36] VITALS: BP 117/71
[2020-03-16 16:00] VITALS: BP 97/67
[2020-03-16 19:43] VITALS: BP 92/61
[2020-03-16] MEDS: MAGNESIUM OXIDE 400 MG TABLET PO SCH (20:52)
[2020-03-16] MEDS: POTASSIUM CHLORIDE 20 MEQ ERTAB PO SCH (20:54)
[2020-03-17] VITALS (7 sets, daily range): BP systolic 104–123; BP diastolic 67–89
[2020-03-17] MEDS: HALOPERIDOL LACTATE 5 MG/ML VIAL IM PRN (00:10)
[2020-03-17 03:55] LABS: BASOPHILS % (AUTO) 1.2 % (0.0-5.0); EOSINOPHILS % (AUTO) 2.1 % (0.0-8.0); HEMATOCRIT 22.3 % (42-54); LYMPHOCYTES % (AUTO) 43.5 % (21.0-51.0); MEAN CORPUSCULAR HEMOGLOBIN 30.2 pg (27.0-33.0); MEAN CORPUSCULAR HGB CONC 34.1 g/dL (32.0-36.0); MEAN CORPUSCULAR VOLUME 88.5 fL (79-99); MONOCYTES % (AUTO) 10.7 % (3.0-13.0); NEUTROPHILS % (AUTO) 42.3 % (40.0-77.0); PLATELET COUNT (AUTO) 25 K/uL (130-400); RED BLOOD CELL COUNT(AUTO) 2.52 MIL/uL (4.50-6.20); RED CELL DISTRIBUTION WIDTH 13.7 % (11.0-15.5); WHITE BLOOD COUNT (AUTO) 4.9 K/uL (4.8-10.8)
[2020-03-17 04:17] LABS: ALBUMIN 1.9 g/dL (3.5-5.0); BILIRUBIN,TOTAL 1.3 mg/dL (0.2-1.0); CREATININE 1.3 mg/dL (0.5-1.5); POTASSIUM 3.1 mmol/L (3.5-5.1); TOTAL PROTEIN, SERUM 6.5 g/dL (6.0-8.3)
[2020-03-17] MEDS: TAMSULOSIN HCL 0.4 MG CAP.ER.24H PO SCH (05:29)
[2020-03-17] MEDS: SPIRONOLACTONE 25 MG TAB PO SCH ×2 (05:29→16:54)
[2020-03-17] MEDS: POTASSIUM CHLORIDE 20 MEQ ERTAB PO PRN (05:29)
[2020-03-17] MEDS: CITALOPRAM 20 MG TABLET PO SCH (10:14)
[2020-03-17] MEDS: BENZTROPINE MESYLATE 0.5 MG TAB PO SCH ×2 (10:14→20:25)
[2020-03-17] MEDS: LACTULOSE 20 GM/30 ML UDCUP PO SCH ×4 (10:15→20:24)
[2020-03-17] MEDS: FUROSEMIDE 40 MG TABLET PO SCH ×2 (10:15→16:56)
[2020-03-17] MEDS: FOLIC ACID 1 MG TABLET PO SCH (10:15)
[2020-03-17] MEDS: VENLAFAXINE HCL XR 37.5 MG CAP PO SCH (10:15)
[2020-03-17] MEDS: THIAMINE HCL 100 MG TABLET PO SCH (10:16)
[2020-03-17] MEDS: QUETIAPINE FUMARATE 25 MG TAB PO SCH ×2 (10:16→20:25)
[2020-03-17] MEDS: PANTOPRAZOLE SODIUM 40 MG TABLET.DR PO SCH ×2 (10:16→20:24)
[2020-03-17] MEDS: CYANOCOBALAMIN (VITAMIN B-12) 1,000 MCG TABLET PO SCH (10:17)
[2020-03-17] MEDS: RIFAXIMIN 550 MG TABLET PO SCH ×2 (10:18→20:26)
[2020-03-17] MEDS: POTASSIUM CHLORIDE 20 MEQ ERTAB PO SCH (20:24)
[2020-03-17] MEDS: MAGNESIUM OXIDE 400 MG TABLET PO SCH (20:24)
[2020-03-17] MEDS ORDERED: ZIPRASIDONE MESYLATE 20 MG/VIAL IM SCH (21:00)
[2020-03-18] VITALS (7 sets, daily range): BP systolic 97–128; BP diastolic 66–87
[2020-03-18 05:28] LABS: BASOPHILS % (AUTO) 0.9 % (0.0-5.0); EOSINOPHILS % (AUTO) 1.6 % (0.0-8.0); HEMATOCRIT 22.7 % (42-54); LYMPHOCYTES % (AUTO) 39.3 % (21.0-51.0); MEAN CORPUSCULAR HEMOGLOBIN 30.2 pg (27.0-33.0); MEAN CORPUSCULAR HGB CONC 33.9 g/dL (32.0-36.0); MONOCYTES % (AUTO) 9.6 % (3.0-13.0); NEUTROPHILS % (AUTO) 48.4 % (40.0-77.0); PLATELET COUNT (AUTO) 78 K/uL (130-400); RED BLOOD CELL COUNT(AUTO) 2.55 MIL/uL (4.50-6.20); RED CELL DISTRIBUTION WIDTH 13.7 % (11.0-15.5); WHITE BLOOD COUNT (AUTO) 5.6 K/uL (4.8-10.8)
[2020-03-18 05:57] LABS: ALBUMIN 1.8 g/dL (3.5-5.0); BILIRUBIN,TOTAL 1.3 mg/dL (0.2-1.0); CREATININE 1.3 mg/dL (0.5-1.5); POTASSIUM 3.4 mmol/L (3.5-5.1); TOTAL PROTEIN, SERUM 6.4 g/dL (6.0-8.3)
[2020-03-18] MEDS: SPIRONOLACTONE 25 MG TAB PO SCH ×2 (07:02→18:14)
[2020-03-18] MEDS: TAMSULOSIN HCL 0.4 MG CAP.ER.24H PO SCH (07:02)
[2020-03-18] MEDS: CITALOPRAM 20 MG TABLET PO SCH (10:38)
[2020-03-18] MEDS: VENLAFAXINE HCL XR 37.5 MG CAP PO SCH (10:39)
[2020-03-18] MEDS: BENZTROPINE MESYLATE 0.5 MG TAB PO SCH ×2 (10:39→22:21)
[2020-03-18] MEDS: LACTULOSE 20 GM/30 ML UDCUP PO SCH ×4 (10:39→22:19)
[2020-03-18] MEDS: FOLIC ACID 1 MG TABLET PO SCH (10:39)
[2020-03-18] MEDS: PANTOPRAZOLE SODIUM 40 MG TABLET.DR PO SCH ×2 (10:40→22:21)
[2020-03-18] MEDS: FUROSEMIDE 40 MG TABLET PO SCH ×2 (10:40→18:14)
[2020-03-18] MEDS: CYANOCOBALAMIN (VITAMIN B-12) 1,000 MCG TABLET PO SCH (10:41)
[2020-03-18] MEDS: THIAMINE HCL 100 MG TABLET PO SCH (10:41)
[2020-03-18] MEDS: QUETIAPINE FUMARATE 25 MG TAB PO SCH ×2 (10:41→22:21)
[2020-03-18] MEDS: HALOPERIDOL LACTATE 5 MG/ML VIAL IM PRN ×2 (11:27→22:40)
[2020-03-18] MEDS: POTASSIUM CHLORIDE 20 MEQ ERTAB PO SCH (22:21)
[2020-03-18] MEDS: MAGNESIUM OXIDE 400 MG TABLET PO SCH (22:22)
[2020-03-19 04:15] VITALS: BP 117/82
[2020-03-19] MEDS: TAMSULOSIN HCL 0.4 MG CAP.ER.24H PO SCH (06:46)
[2020-03-19] MEDS: SPIRONOLACTONE 25 MG TAB PO SCH ×2 (06:46→16:30)
[2020-03-19 08:35] VITALS: BP 109/79
[2020-03-19] MEDS: CITALOPRAM 20 MG TABLET PO SCH (10:03)
[2020-03-19] MEDS: FOLIC ACID 1 MG TABLET PO SCH (10:09)
[2020-03-19] MEDS: BENZTROPINE MESYLATE 0.5 MG TAB PO SCH ×2 (10:09→21:40)
[2020-03-19] MEDS: VENLAFAXINE HCL XR 37.5 MG CAP PO SCH (10:09)
[2020-03-19] MEDS: LACTULOSE 20 GM/30 ML UDCUP PO SCH ×5 (10:09→21:41)
[2020-03-19] MEDS: PANTOPRAZOLE SODIUM 40 MG TABLET.DR PO SCH ×2 (10:10→21:41)
[2020-03-19] MEDS: THIAMINE HCL 100 MG TABLET PO SCH (10:10)
[2020-03-19] MEDS: FUROSEMIDE 40 MG TABLET PO SCH ×2 (10:10→17:00)
[2020-03-19] MEDS: CYANOCOBALAMIN (VITAMIN B-12) 1,000 MCG TABLET PO SCH (10:10)
[2020-03-19] MEDS: QUETIAPINE FUMARATE 25 MG TAB PO SCH ×2 (10:10→21:41)
[2020-03-19 11:00] VITALS: BP_SYST 110; BP_SYST 95; BP_DIAS 66; BP_DIAS 79
[2020-03-19 18:50] VITALS: BP 95/66
[2020-03-19 20:00] VITALS: BP 109/76
[2020-03-19] MEDS: MAGNESIUM OXIDE 400 MG TABLET PO SCH (21:41)
[2020-03-19] MEDS: POTASSIUM CHLORIDE 20 MEQ ERTAB PO SCH (21:41)
[2020-03-20] VITALS (7 sets, daily range): BP systolic 103–130; BP diastolic 69–97
[2020-03-20] MEDS: SPIRONOLACTONE 25 MG TAB PO SCH ×2 (06:14→17:24)
[2020-03-20] MEDS: TAMSULOSIN HCL 0.4 MG CAP.ER.24H PO SCH (06:14)
[2020-03-20] MEDS: CYANOCOBALAMIN (VITAMIN B-12) 1,000 MCG TABLET PO SCH (09:10)
[2020-03-20] MEDS: LACTULOSE 20 GM/30 ML UDCUP PO SCH ×4 (09:10→21:00)
[2020-03-20] MEDS: PANTOPRAZOLE SODIUM 40 MG TABLET.DR PO SCH ×2 (09:10→21:55)
[2020-03-20] MEDS: THIAMINE HCL 100 MG TABLET PO SCH (09:10)
[2020-03-20] MEDS: FUROSEMIDE 40 MG TABLET PO SCH ×2 (09:11→17:32)
[2020-03-20] MEDS: QUETIAPINE FUMARATE 25 MG TAB PO SCH ×2 (09:11→21:56)
[2020-03-20] MEDS: BENZTROPINE MESYLATE 0.5 MG TAB PO SCH ×2 (09:11→21:57)
[2020-03-20] MEDS: FOLIC ACID 1 MG TABLET PO SCH (09:11)
[2020-03-20] MEDS: VENLAFAXINE HCL XR 37.5 MG CAP PO SCH (09:12)
[2020-03-20] MEDS: CITALOPRAM 20 MG TABLET PO SCH (09:12)
[2020-03-20] MEDS: MAGNESIUM OXIDE 400 MG TABLET PO SCH (21:55)
[2020-03-20] MEDS: POTASSIUM CHLORIDE 20 MEQ ERTAB PO SCH (21:57)
[2020-03-21] VITALS (13 sets, daily range): BP systolic 100–135; BP diastolic 65–90
[2020-03-21] MEDS: TAMSULOSIN HCL 0.4 MG CAP.ER.24H PO SCH (04:38)
[2020-03-21 05:05] LABS: INR 1.47 (0.85-1.15); PROTHROMBIN TIME 15.3 SEC (9.6-11.6)
[2020-03-21 05:06] LABS: PARTIAL THROMBOPLASTIN TIME 37.3 SEC (26.3-35.5)
[2020-03-21] MEDS: SPIRONOLACTONE 25 MG TAB PO SCH ×2 (05:47→18:28)
[2020-03-21] MEDS: TRAMADOL HCL 50 MG TABLET PO PRN ×2 (06:05→21:55)
[2020-03-21 07:52] LABS: BASOPHILS % (AUTO) 1.2 % (0.0-5.0); HEMATOCRIT 25.4 % (42-54); LYMPHOCYTES % (AUTO) 37.5 % (21.0-51.0); MEAN CORPUSCULAR HEMOGLOBIN 29.9 pg (27.0-33.0); MEAN CORPUSCULAR HGB CONC 33.1 g/dL (32.0-36.0); MEAN CORPUSCULAR VOLUME 90.4 fL (79-99); MONOCYTES % (AUTO) 9.9 % (3.0-13.0); NEUTROPHILS % (AUTO) 49.2 % (40.0-77.0); RED BLOOD CELL COUNT(AUTO) 2.81 MIL/uL (4.50-6.20); RED CELL DISTRIBUTION WIDTH 13.7 % (11.0-15.5); WHITE BLOOD COUNT (AUTO) 5.9 K/uL (4.8-10.8)
[2020-03-21 07:57] LABS: CREATININE 1.3 mg/dL (0.5-1.5); POTASSIUM 3.7 mmol/L (3.5-5.1)
[2020-03-21] MEDS: PANTOPRAZOLE SODIUM 40 MG TABLET.DR PO SCH ×2 (09:49→21:45)
[2020-03-21] MEDS: VENLAFAXINE HCL XR 37.5 MG CAP PO SCH (09:49)
[2020-03-21] MEDS: FOLIC ACID 1 MG TABLET PO SCH (09:49)
[2020-03-21] MEDS: CITALOPRAM 20 MG TABLET PO SCH (09:50)
[2020-03-21] MEDS: QUETIAPINE FUMARATE 25 MG TAB PO SCH ×2 (09:50→21:47)
[2020-03-21] MEDS: BENZTROPINE MESYLATE 0.5 MG TAB PO SCH ×2 (09:50→21:46)
[2020-03-21] MEDS: THIAMINE HCL 100 MG TABLET PO SCH (09:50)
[2020-03-21] MEDS: FUROSEMIDE 40 MG TABLET PO SCH ×2 (09:50→18:28)
[2020-03-21] MEDS: CYANOCOBALAMIN (VITAMIN B-12) 1,000 MCG TABLET PO SCH (09:50)
[2020-03-21] MEDS: HONEY 1 APPL/ML TUBE TP SCH (09:50)
[2020-03-21] MEDS: LACTULOSE 20 GM/30 ML UDCUP PO SCH ×4 (09:52→21:47)
[2020-03-21 10:38] LABS: PLATELET COUNT (AUTO) 86 K/uL (130-400)
[2020-03-21] MEDS ORDERED: ALBUMIN (HUMAN) 25% 200 ML IV ONE (11:30)
[2020-03-21 14:08] LABS: APPEARANCE BODY FLUID CLEAR (CLEAR); BODY FLUID WBC 199 /cu. mm.; COLOR,BODY FLUID YELLOW (LT YELLOW); SPECIMENTYPE,BODY FLUID ASCITES; TOTAL VOLUME,BODY FLUID 7300 mL
[2020-03-21 14:09] LABS: BODY FLUID RBC 225 /cu. mm.
[2020-03-21 14:16] LABS: BF LYMPHOCYTE 59 %; BF MESOTHELIAL 20 %; BF MONOCYTE 18 %
[2020-03-21] MEDS: MAGNESIUM OXIDE 400 MG TABLET PO SCH (21:45)
[2020-03-21] MEDS: POTASSIUM CHLORIDE 20 MEQ ERTAB PO SCH (21:46)
[2020-03-22 04:16] VITALS: BP 104/73
[2020-03-22 05:24] LABS: BASOPHILS % (AUTO) 0.9 % (0.0-5.0); EOSINOPHILS % (AUTO) 2.1 % (0.0-8.0); HEMATOCRIT 26.3 % (42-54); LYMPHOCYTES % (AUTO) 35.5 % (21.0-51.0); MEAN CORPUSCULAR HEMOGLOBIN 29.7 pg (27.0-33.0); MEAN CORPUSCULAR HGB CONC 33.5 g/dL (32.0-36.0); MEAN CORPUSCULAR VOLUME 88.9 fL (79-99); MONOCYTES % (AUTO) 9.9 % (3.0-13.0); NEUTROPHILS % (AUTO) 51.3 % (40.0-77.0); PLATELET COUNT (AUTO) 78 K/uL (130-400); RED BLOOD CELL COUNT(AUTO) 2.96 MIL/uL (4.50-6.20); RED CELL DISTRIBUTION WIDTH 13.2 % (11.0-15.5); WHITE BLOOD COUNT (AUTO) 6.7 K/uL (4.8-10.8)
[2020-03-22 06:11] LABS: ALBUMIN 2.3 g/dL (3.5-5.0); BILIRUBIN,TOTAL 1.6 mg/dL (0.2-1.0); CREATININE 1.2 mg/dL (0.5-1.5); POTASSIUM 3.4 mmol/L (3.5-5.1); TOTAL PROTEIN, SERUM 6.7 g/dL (6.0-8.3)
[2020-03-22] MEDS: TAMSULOSIN HCL 0.4 MG CAP.ER.24H PO SCH (06:42)
[2020-03-22] MEDS: SPIRONOLACTONE 25 MG TAB PO SCH ×2 (06:42→16:36)
[2020-03-22 07:51] VITALS: BP 127/91
[2020-03-22] MEDS: QUETIAPINE FUMARATE 25 MG TAB PO SCH ×2 (08:39→20:28)
[2020-03-22] MEDS: CYANOCOBALAMIN (VITAMIN B-12) 1,000 MCG TABLET PO SCH (08:39)
[2020-03-22] MEDS: THIAMINE HCL 100 MG TABLET PO SCH (08:40)
[2020-03-22] MEDS: BENZTROPINE MESYLATE 0.5 MG TAB PO SCH ×2 (08:40→20:21)
[2020-03-22] MEDS: FUROSEMIDE 40 MG TABLET PO SCH ×2 (08:41→16:37)
[2020-03-22] MEDS: VENLAFAXINE HCL XR 37.5 MG CAP PO SCH (08:41)
[2020-03-22] MEDS: PANTOPRAZOLE SODIUM 40 MG TABLET.DR PO SCH ×2 (08:41→20:27)
[2020-03-22] MEDS: FOLIC ACID 1 MG TABLET PO SCH (08:42)
[2020-03-22] MEDS: CITALOPRAM 20 MG TABLET PO SCH (08:42)
[2020-03-22] MEDS: HONEY 1 APPL/ML TUBE TP SCH (08:43)
[2020-03-22] MEDS: LACTULOSE 20 GM/30 ML UDCUP PO SCH ×6 (09:31→20:25)
[2020-03-22 11:00] VITALS: BP 101/68
[2020-03-22 15:50] VITALS: BP 105/70
[2020-03-22] MEDS: POTASSIUM CHLORIDE 20 MEQ ERTAB PO PRN (18:20)
[2020-03-22 19:58] VITALS: BP 117/78
[2020-03-22] MEDS: POTASSIUM CHLORIDE 20 MEQ ERTAB PO SCH (20:23)
[2020-03-22] MEDS: MAGNESIUM OXIDE 400 MG TABLET PO SCH (20:26)
[2020-03-22 23:49] VITALS: BP 106/74
[2020-03-23 04:22] VITALS: BP 116/81
[2020-03-23] MEDS: TAMSULOSIN HCL 0.4 MG CAP.ER.24H PO SCH (04:51)
[2020-03-23] MEDS: POTASSIUM CHLORIDE 20 MEQ ERTAB PO SCH ×2 (05:16→21:07)
[2020-03-23] MEDS: SPIRONOLACTONE 25 MG TAB PO SCH ×2 (06:43→18:25)
[2020-03-23 07:30] VITALS: BP 107/73
[2020-03-23] MEDS: LACTULOSE 20 GM/30 ML UDCUP PO SCH ×4 (10:24→21:00)
[2020-03-23] MEDS: FOLIC ACID 1 MG TABLET PO SCH (10:25)
[2020-03-23] MEDS: PANTOPRAZOLE SODIUM 40 MG TABLET.DR PO SCH ×2 (10:25→21:03)
[2020-03-23] MEDS: THIAMINE HCL 100 MG TABLET PO SCH (10:25)
[2020-03-23] MEDS: BENZTROPINE MESYLATE 0.5 MG TAB PO SCH ×2 (10:25→21:03)
[2020-03-23] MEDS: FUROSEMIDE 40 MG TABLET PO SCH ×2 (10:25→18:25)
[2020-03-23] MEDS: CYANOCOBALAMIN (VITAMIN B-12) 1,000 MCG TABLET PO SCH (10:25)
[2020-03-23] MEDS: QUETIAPINE FUMARATE 25 MG TAB PO SCH ×2 (10:26→21:04)
[2020-03-23] MEDS: CITALOPRAM 20 MG TABLET PO SCH (10:26)
[2020-03-23] MEDS: VENLAFAXINE HCL XR 37.5 MG CAP PO SCH (10:27)
[2020-03-23] MEDS: HONEY 1 APPL/ML TUBE TP SCH (10:28)
[2020-03-23 11:00] VITALS: BP 103/74
[2020-03-23 16:00] VITALS: BP 106/74
[2020-03-23 19:52] VITALS: BP 104/70
[2020-03-23] MEDS: MAGNESIUM OXIDE 400 MG TABLET PO SCH (21:04)
[2020-03-23 23:43] VITALS: BP 105/71
[2020-03-24 03:38] LABS: BASOPHILS % (AUTO) 0.5 % (0.0-5.0); HEMATOCRIT 24.7 % (42-54); MEAN CORPUSCULAR HGB CONC 34.4 g/dL (32.0-36.0); MEAN CORPUSCULAR VOLUME 87.3 fL (79-99); MONOCYTES % (AUTO) 12.9 % (3.0-13.0); NEUTROPHILS % (AUTO) 48.4 % (40.0-77.0); PLATELET COUNT (AUTO) 70 K/uL (130-400); RED BLOOD CELL COUNT(AUTO) 2.83 MIL/uL (4.50-6.20); WHITE BLOOD COUNT (AUTO) 5.6 K/uL (4.8-10.8)
[2020-03-24 03:49] LABS: CREATININE 1.2 mg/dL (0.5-1.5); POTASSIUM 4.2 mmol/L (3.5-5.1)
[2020-03-24 04:00] VITALS: BP 112/75
[2020-03-24 04:35] LABS: PLATELET MORPHOLOGY COMMENT PLT CLUMPS PRESENT
[2020-03-24] MEDS: TAMSULOSIN HCL 0.4 MG CAP.ER.24H PO SCH (06:04)
[2020-03-24 08:00] VITALS: BP 103/71
[2020-03-24] MEDS: ENOXAPARIN SODIUM 30 MG/0.3 ML SQ SCH (09:00)
[2020-03-24] MEDS: CYANOCOBALAMIN (VITAMIN B-12) 1,000 MCG TABLET PO SCH (09:54)
[2020-03-24] MEDS: LACTULOSE 20 GM/30 ML UDCUP PO SCH ×4 (09:54→21:50)
[2020-03-24] MEDS: BENZTROPINE MESYLATE 0.5 MG TAB PO SCH ×2 (09:54→21:49)
[2020-03-24] MEDS: CITALOPRAM 20 MG TABLET PO SCH (09:54)
[2020-03-24] MEDS: VENLAFAXINE HCL XR 37.5 MG CAP PO SCH (09:54)
[2020-03-24] MEDS: QUETIAPINE FUMARATE 25 MG TAB PO SCH ×2 (09:54→21:50)
[2020-03-24] MEDS: THIAMINE HCL 100 MG TABLET PO SCH (09:54)
[2020-03-24] MEDS: FOLIC ACID 1 MG TABLET PO SCH (09:54)
[2020-03-24] MEDS: FUROSEMIDE 40 MG TABLET PO SCH ×2 (09:55→17:06)
[2020-03-24] MEDS: PANTOPRAZOLE SODIUM 40 MG TABLET.DR PO SCH ×2 (09:55→21:50)
[2020-03-24] MEDS: SPIRONOLACTONE 25 MG TAB PO SCH ×2 (09:56→17:06)
[2020-03-24 11:53] VITALS: BP 104/71
[2020-03-24 16:00] VITALS: BP 105/77
[2020-03-24] MEDS: HONEY 1 APPL/ML TUBE TP SCH (17:12)
[2020-03-24 19:52] VITALS: BP 126/73
[2020-03-24] MEDS: MAGNESIUM OXIDE 400 MG TABLET PO SCH (21:49)
[2020-03-24] MEDS: POTASSIUM CHLORIDE 20 MEQ ERTAB PO SCH (21:50)
[2020-03-24 23:40] VITALS: BP 114/89
[2020-03-25 04:00] VITALS: BP 114/82
[2020-03-25] MEDS: TAMSULOSIN HCL 0.4 MG CAP.ER.24H PO SCH (05:19)
[2020-03-25] MEDS: SPIRONOLACTONE 25 MG TAB PO SCH ×2 (06:31→18:26)
[2020-03-25] MEDS: BENZTROPINE MESYLATE 0.5 MG TAB PO SCH ×2 (08:12→21:08)
[2020-03-25] MEDS: FOLIC ACID 1 MG TABLET PO SCH (08:12)
[2020-03-25] MEDS: FUROSEMIDE 40 MG TABLET PO SCH ×2 (08:12→18:26)
[2020-03-25] MEDS: CYANOCOBALAMIN (VITAMIN B-12) 1,000 MCG TABLET PO SCH (08:12)
[2020-03-25] MEDS: THIAMINE HCL 100 MG TABLET PO SCH (08:12)
[2020-03-25] MEDS: HONEY 1 APPL/ML TUBE TP SCH (08:13)
[2020-03-25] MEDS: QUETIAPINE FUMARATE 25 MG TAB PO SCH ×2 (08:13→21:08)
[2020-03-25] MEDS: CITALOPRAM 20 MG TABLET PO SCH (08:13)
[2020-03-25] MEDS: PANTOPRAZOLE SODIUM 40 MG TABLET.DR PO SCH ×2 (08:13→21:08)
[2020-03-25] MEDS: VENLAFAXINE HCL XR 37.5 MG CAP PO SCH (08:27)
[2020-03-25 08:35] LABS: BASOPHILS % (AUTO) 1.2 % (0.0-5.0); EOSINOPHILS % (AUTO) 1.9 % (0.0-8.0); HEMATOCRIT 27.3 % (42-54); LYMPHOCYTES % (AUTO) 30.8 % (21.0-51.0); MEAN CORPUSCULAR HEMOGLOBIN 29.9 pg (27.0-33.0); MEAN CORPUSCULAR VOLUME 90.7 fL (79-99); MONOCYTES % (AUTO) 11.2 % (3.0-13.0); NEUTROPHILS % (AUTO) 54.6 % (40.0-77.0); PLATELET COUNT (AUTO) 101 K/uL (130-400); RED BLOOD CELL COUNT(AUTO) 3.01 MIL/uL (4.50-6.20); RED CELL DISTRIBUTION WIDTH 13.3 % (11.0-15.5); WHITE BLOOD COUNT (AUTO) 5.8 K/uL (4.8-10.8)
[2020-03-25 09:29] VITALS: BP 128/88
[2020-03-25] MEDS: LACTULOSE 20 GM/30 ML UDCUP PO SCH ×4 (10:47→21:08)
[2020-03-25] MEDS: ENOXAPARIN SODIUM 30 MG/0.3 ML SQ SCH (13:04)
[2020-03-25 13:55] VITALS: BP 130/89
[2020-03-25 17:04] VITALS: BP 115/78
[2020-03-25 20:00] VITALS: BP 110/74
[2020-03-25] MEDS: MAGNESIUM OXIDE 400 MG TABLET PO SCH (21:08)
[2020-03-25] MEDS: POTASSIUM CHLORIDE 20 MEQ ERTAB PO SCH (21:11)
[2020-03-26] VITALS (7 sets, daily range): BP systolic 101–132; BP diastolic 70–82
[2020-03-26] MEDS: TRAMADOL HCL 50 MG TABLET PO PRN (02:55)
[2020-03-26] MEDS: TAMSULOSIN HCL 0.4 MG CAP.ER.24H PO SCH (04:29)
[2020-03-26] MEDS: SPIRONOLACTONE 25 MG TAB PO SCH ×2 (06:34→16:45)
[2020-03-26] MEDS: LACTULOSE 20 GM/30 ML UDCUP PO SCH ×4 (08:05→21:04)
[2020-03-26] MEDS: THIAMINE HCL 100 MG TABLET PO SCH (08:07)
[2020-03-26] MEDS: FOLIC ACID 1 MG TABLET PO SCH (08:07)
[2020-03-26] MEDS: PANTOPRAZOLE SODIUM 40 MG TABLET.DR PO SCH ×2 (08:07→21:04)
[2020-03-26] MEDS: CITALOPRAM 20 MG TABLET PO SCH (08:07)
[2020-03-26] MEDS: BENZTROPINE MESYLATE 0.5 MG TAB PO SCH ×2 (08:07→21:06)
[2020-03-26] MEDS: VENLAFAXINE HCL XR 37.5 MG CAP PO SCH (08:07)
[2020-03-26] MEDS: FUROSEMIDE 40 MG TABLET PO SCH ×2 (08:08→16:45)
[2020-03-26] MEDS: QUETIAPINE FUMARATE 25 MG TAB PO SCH ×2 (08:08→21:05)
[2020-03-26] MEDS: CYANOCOBALAMIN (VITAMIN B-12) 1,000 MCG TABLET PO SCH (08:08)
[2020-03-26] MEDS: ENOXAPARIN SODIUM 30 MG/0.3 ML SQ SCH (08:13)
[2020-03-26] MEDS: HONEY 1 APPL/ML TUBE TP SCH (08:22)
[2020-03-26] MEDS: MAGNESIUM OXIDE 400 MG TABLET PO SCH (21:04)
[2020-03-26] MEDS: POTASSIUM CHLORIDE 20 MEQ ERTAB PO SCH (21:05)
[2020-03-27] MEDS: TRAMADOL HCL 50 MG TABLET PO PRN (02:06)
[2020-03-27 03:49] VITALS: BP 118/78
[2020-03-27] MEDS: TAMSULOSIN HCL 0.4 MG CAP.ER.24H PO SCH (04:35)
[2020-03-27 06:05] LABS: CREATININE 1.2 mg/dL (0.5-1.5); POTASSIUM 4.2 mmol/L (3.5-5.1)
[2020-03-27] MEDS: SPIRONOLACTONE 25 MG TAB PO SCH ×2 (06:43→17:38)
[2020-03-27 07:02] LABS: BASOPHILS % (AUTO) 1.3 % (0.0-5.0); EOSINOPHILS % (AUTO) 2.2 % (0.0-8.0); HEMATOCRIT 25.7 % (42-54); LYMPHOCYTES % (AUTO) 42.5 % (21.0-51.0); MEAN CORPUSCULAR HEMOGLOBIN 29.9 pg (27.0-33.0); MEAN CORPUSCULAR HGB CONC 33.9 g/dL (32.0-36.0); MEAN CORPUSCULAR VOLUME 88.3 fL (79-99); MONOCYTES % (AUTO) 10.8 % (3.0-13.0); NEUTROPHILS % (AUTO) 42.9 % (40.0-77.0); PLATELET COUNT (AUTO) 65 K/uL (130-400); RED BLOOD CELL COUNT(AUTO) 2.91 MIL/uL (4.50-6.20); RED CELL DISTRIBUTION WIDTH 13.1 % (11.0-15.5); WHITE BLOOD COUNT (AUTO) 6.2 K/uL (4.8-10.8)
[2020-03-27 08:23] VITALS: BP 124/83
[2020-03-27] MEDS: CYANOCOBALAMIN (VITAMIN B-12) 1,000 MCG TABLET PO SCH (10:14)
[2020-03-27] MEDS: FOLIC ACID 1 MG TABLET PO SCH (10:14)
[2020-03-27] MEDS: FUROSEMIDE 40 MG TABLET PO SCH ×2 (10:14→17:39)
[2020-03-27] MEDS: ENOXAPARIN SODIUM 30 MG/0.3 ML SQ SCH (10:14)
[2020-03-27] MEDS: CITALOPRAM 20 MG TABLET PO SCH (10:14)
[2020-03-27] MEDS: PANTOPRAZOLE SODIUM 40 MG TABLET.DR PO SCH ×2 (10:14→20:17)
[2020-03-27] MEDS: QUETIAPINE FUMARATE 25 MG TAB PO SCH ×2 (10:14→20:17)
[2020-03-27] MEDS: THIAMINE HCL 100 MG TABLET PO SCH (10:15)
[2020-03-27] MEDS: BENZTROPINE MESYLATE 0.5 MG TAB PO SCH ×2 (10:15→20:17)
[2020-03-27] MEDS: HONEY 1 APPL/ML TUBE TP SCH (10:15)
[2020-03-27] MEDS: LACTULOSE 20 GM/30 ML UDCUP PO SCH ×4 (10:20→20:24)
[2020-03-27] MEDS: VENLAFAXINE HCL XR 37.5 MG CAP PO SCH (10:20)
[2020-03-27 11:30] VITALS: BP 112/72
[2020-03-27 17:20] VITALS: BP 105/68
[2020-03-27 19:30] VITALS: BP 100/63
[2020-03-27] MEDS: MAGNESIUM OXIDE 400 MG TABLET PO SCH (20:17)
[2020-03-27 23:58] VITALS: BP 111/72
[2020-03-28 04:00] VITALS: BP 101/71
[2020-03-28] MEDS: TAMSULOSIN HCL 0.4 MG CAP.ER.24H PO SCH (05:08)
[2020-03-28] MEDS: SPIRONOLACTONE 25 MG TAB PO SCH (05:08)
[2020-03-28 05:46] LABS: EOSINOPHILS % (AUTO) 2.2 % (0.0-8.0); HEMATOCRIT 25.1 % (42-54); LYMPHOCYTES % (AUTO) 38.5 % (21.0-51.0); MEAN CORPUSCULAR HEMOGLOBIN 29.2 pg (27.0-33.0); MEAN CORPUSCULAR HGB CONC 33.9 g/dL (32.0-36.0); MEAN CORPUSCULAR VOLUME 86.3 fL (79-99); MONOCYTES % (AUTO) 10.1 % (3.0-13.0); RED BLOOD CELL COUNT(AUTO) 2.91 MIL/uL (4.50-6.20); RED CELL DISTRIBUTION WIDTH 12.8 % (11.0-15.5); WHITE BLOOD COUNT (AUTO) 5.9 K/uL (4.8-10.8)
[2020-03-28 06:14] LABS: CREATININE 1.3 mg/dL (0.5-1.5); MAGNESIUM 1.8 mg/dL (1.80-2.40)
[2020-03-28 06:34] LABS: PLATELET COUNT (AUTO) 58 K/uL (130-400)
[2020-03-28 07:47] VITALS: BP 113/76
[2020-03-28] MEDS: FOLIC ACID 1 MG TABLET PO SCH (09:15)
[2020-03-28] MEDS: BENZTROPINE MESYLATE 0.5 MG TAB PO SCH ×2 (09:15→21:04)
[2020-03-28] MEDS: PANTOPRAZOLE SODIUM 40 MG TABLET.DR PO SCH ×2 (09:15→21:04)
[2020-03-28] MEDS: VENLAFAXINE HCL XR 37.5 MG CAP PO SCH (09:15)
[2020-03-28] MEDS: THIAMINE HCL 100 MG TABLET PO SCH (09:15)
[2020-03-28] MEDS: CYANOCOBALAMIN (VITAMIN B-12) 1,000 MCG TABLET PO SCH (09:15)
[2020-03-28] MEDS: QUETIAPINE FUMARATE 25 MG TAB PO SCH ×2 (09:16→21:04)
[2020-03-28] MEDS: CITALOPRAM 20 MG TABLET PO SCH (09:16)
[2020-03-28] MEDS: LACTULOSE 20 GM/30 ML UDCUP PO SCH ×4 (09:17→21:03)
[2020-03-28] MEDS: FUROSEMIDE 40 MG TABLET PO SCH (09:17)
[2020-03-28] MEDS: ENOXAPARIN SODIUM 30 MG/0.3 ML SQ SCH (09:17)
[2020-03-28] MEDS: HONEY 1 APPL/ML TUBE TP SCH (09:19)
[2020-03-28 11:24] VITALS: BP 90/60
[2020-03-28 16:28] VITALS: BP 108/77
[2020-03-28] MEDS: ONDANSETRON HCL 4 MG/2 ML VIAL IV PRN (17:46)
[2020-03-28 20:00] VITALS: BP 111/70
[2020-03-28] MEDS: POTASSIUM CHLORIDE 20 MEQ ERTAB PO SCH (21:04)
[2020-03-28] MEDS: MAGNESIUM OXIDE 400 MG TABLET PO SCH (21:04)
[2020-03-28 23:46] VITALS: BP 103/72
[2020-03-29 04:00] VITALS: BP 100/64
[2020-03-29] MEDS: TAMSULOSIN HCL 0.4 MG CAP.ER.24H PO SCH (04:44)
[2020-03-29 07:37] LABS: CREATININE 1.3 mg/dL (0.5-1.5)
[2020-03-29] MEDS: ENOXAPARIN SODIUM 30 MG/0.3 ML SQ SCH (09:00)
[2020-03-29 09:15] VITALS: BP 100/71
[2020-03-29] MEDS: CITALOPRAM 20 MG TABLET PO SCH (09:36)
[2020-03-29] MEDS: QUETIAPINE FUMARATE 25 MG TAB PO SCH ×2 (09:37→22:09)
[2020-03-29] MEDS: FOLIC ACID 1 MG TABLET PO SCH (09:38)
[2020-03-29] MEDS: VENLAFAXINE HCL XR 37.5 MG CAP PO SCH (09:38)
[2020-03-29] MEDS: CYANOCOBALAMIN (VITAMIN B-12) 1,000 MCG TABLET PO SCH (09:39)
[2020-03-29] MEDS: PANTOPRAZOLE SODIUM 40 MG TABLET.DR PO SCH ×2 (09:40→22:09)
[2020-03-29] MEDS: BENZTROPINE MESYLATE 0.5 MG TAB PO SCH ×2 (09:40→22:09)
[2020-03-29] MEDS: LACTULOSE 20 GM/30 ML UDCUP PO SCH ×3 (09:40→22:08)
[2020-03-29] MEDS: THIAMINE HCL 100 MG TABLET PO SCH (09:41)
[2020-03-29] MEDS: HONEY 1 APPL/ML TUBE TP SCH (09:42)
[2020-03-29 12:32] VITALS: BP 113/75
[2020-03-29 17:59] VITALS: BP 110/79
[2020-03-29 19:30] VITALS: BP 112/75
[2020-03-29] MEDS: POTASSIUM CHLORIDE 20 MEQ ERTAB PO SCH (22:09)
[2020-03-29] MEDS: MAGNESIUM OXIDE 400 MG TABLET PO SCH (22:10)
[2020-03-30] VITALS (7 sets, daily range): BP systolic 103–128; BP diastolic 71–95
[2020-03-30] MEDS: TAMSULOSIN HCL 0.4 MG CAP.ER.24H PO SCH (05:04)
[2020-03-30 06:33] LABS: CREATININE 1.4 mg/dL (0.5-1.5); POTASSIUM 4.2 mmol/L (3.5-5.1)
[2020-03-30] MEDS: ENOXAPARIN SODIUM 30 MG/0.3 ML SQ SCH (09:00)
[2020-03-30] MEDS: THIAMINE HCL 100 MG TABLET PO SCH (10:36)
[2020-03-30] MEDS: QUETIAPINE FUMARATE 25 MG TAB PO SCH ×2 (10:36→20:45)
[2020-03-30] MEDS: BENZTROPINE MESYLATE 0.5 MG TAB PO SCH ×2 (10:37→20:44)
[2020-03-30] MEDS: CYANOCOBALAMIN (VITAMIN B-12) 1,000 MCG TABLET PO SCH (10:37)
[2020-03-30] MEDS: PANTOPRAZOLE SODIUM 40 MG TABLET.DR PO SCH ×2 (10:39→20:44)
[2020-03-30] MEDS: LACTULOSE 20 GM/30 ML UDCUP PO SCH ×4 (10:40→20:45)
[2020-03-30] MEDS: VENLAFAXINE HCL XR 37.5 MG CAP PO SCH (10:48)
[2020-03-30] MEDS: CITALOPRAM 20 MG TABLET PO SCH (10:49)
[2020-03-30] MEDS: FOLIC ACID 1 MG TABLET PO SCH (10:52)
[2020-03-30] MEDS: HONEY 1 APPL/ML TUBE TP SCH (18:01)
[2020-03-30] MEDS: POTASSIUM CHLORIDE 20 MEQ ERTAB PO SCH (20:44)
[2020-03-30] MEDS: MAGNESIUM OXIDE 400 MG TABLET PO SCH (20:44)
[2020-03-31 03:51] VITALS: BP 119/86
[2020-03-31] MEDS: TAMSULOSIN HCL 0.4 MG CAP.ER.24H PO SCH (04:40)
[2020-03-31 08:00] VITALS: BP 114/80
[2020-03-31] MEDS: HONEY 1 APPL/ML TUBE TP SCH (09:00)
[2020-03-31] MEDS: LACTULOSE 20 GM/30 ML UDCUP PO SCH ×4 (10:05→20:57)
[2020-03-31] MEDS: FOLIC ACID 1 MG TABLET PO SCH (10:05)
[2020-03-31] MEDS: BENZTROPINE MESYLATE 0.5 MG TAB PO SCH ×2 (10:05→20:57)
[2020-03-31] MEDS: THIAMINE HCL 100 MG TABLET PO SCH (10:05)
[2020-03-31] MEDS: PANTOPRAZOLE SODIUM 40 MG TABLET.DR PO SCH ×2 (10:06→20:57)
[2020-03-31] MEDS: VENLAFAXINE HCL XR 37.5 MG CAP PO SCH (10:06)
[2020-03-31] MEDS: QUETIAPINE FUMARATE 25 MG TAB PO SCH ×2 (10:06→20:58)
[2020-03-31] MEDS: CYANOCOBALAMIN (VITAMIN B-12) 1,000 MCG TABLET PO SCH (10:06)
[2020-03-31] MEDS: ENOXAPARIN SODIUM 30 MG/0.3 ML SQ SCH (10:08)
[2020-03-31] MEDS: CITALOPRAM 20 MG TABLET PO SCH (10:08)
[2020-03-31 12:00] VITALS: BP 107/77
[2020-03-31 15:43] VITALS: BP 106/77
[2020-03-31 20:22] VITALS: BP 106/70
[2020-03-31] MEDS: POTASSIUM CHLORIDE 20 MEQ ERTAB PO SCH (20:57)
[2020-03-31] MEDS: MAGNESIUM OXIDE 400 MG TABLET PO SCH (20:58)
[2020-03-31 23:54] VITALS: BP 122/89
[2020-04-01 03:52] VITALS: BP 119/87
[2020-04-01] MEDS: TAMSULOSIN HCL 0.4 MG CAP.ER.24H PO SCH (05:00)
[2020-04-01 05:40] LABS: BASOPHILS % (AUTO) 1.2 % (0.0-5.0); EOSINOPHILS % (AUTO) 2.2 % (0.0-8.0); HEMATOCRIT 25.3 % (42-54); LYMPHOCYTES % (AUTO) 34.2 % (21.0-51.0); MEAN CORPUSCULAR HEMOGLOBIN 29.6 pg (27.0-33.0); MEAN CORPUSCULAR HGB CONC 33.6 g/dL (32.0-36.0); MEAN CORPUSCULAR VOLUME 88.2 fL (79-99); MONOCYTES % (AUTO) 10.8 % (3.0-13.0); NEUTROPHILS % (AUTO) 51.2 % (40.0-77.0); RED BLOOD CELL COUNT(AUTO) 2.87 MIL/uL (4.50-6.20)
[2020-04-01 05:50] LABS: CREATININE 1.2 mg/dL (0.5-1.5); MAGNESIUM 2.1 mg/dL (1.80-2.40)
[2020-04-01 05:51] LABS: PLATELET COUNT (AUTO) 68 K/uL (130-400)
[2020-04-01 06:09] LABS: PLATELET MORPHOLOGY COMMENT DECREASED
[2020-04-01 08:39] VITALS: BP 98/68
[2020-04-01] MEDS: THIAMINE HCL 100 MG TABLET PO SCH (09:00)
[2020-04-01] MEDS: VENLAFAXINE HCL XR 37.5 MG CAP PO SCH (09:00)
[2020-04-01] MEDS: HONEY 1 APPL/ML TUBE TP SCH (09:00)
[2020-04-01] MEDS: LACTULOSE 20 GM/30 ML UDCUP PO SCH ×4 (11:13→21:09)
[2020-04-01] MEDS: POTASSIUM CHLORIDE 20 MEQ ERTAB PO SCH (11:14)
[2020-04-01] MEDS: MAGNESIUM OXIDE 400 MG TABLET PO SCH (11:14)
[2020-04-01] MEDS: QUETIAPINE FUMARATE 25 MG TAB PO SCH ×2 (11:14→21:10)
[2020-04-01] MEDS: PANTOPRAZOLE SODIUM 40 MG TABLET.DR PO SCH ×2 (11:14→21:10)
[2020-04-01] MEDS: CITALOPRAM 20 MG TABLET PO SCH (11:15)
[2020-04-01] MEDS: CYANOCOBALAMIN (VITAMIN B-12) 1,000 MCG TABLET PO SCH (11:15)
[2020-04-01] MEDS: FOLIC ACID 1 MG TABLET PO SCH (11:15)
[2020-04-01] MEDS: BENZTROPINE MESYLATE 0.5 MG TAB PO SCH ×2 (11:16→21:09)
[2020-04-01] MEDS: ENOXAPARIN SODIUM 30 MG/0.3 ML SQ SCH (11:17)
[2020-04-01 11:45] VITALS: BP 110/79
[2020-04-01] MEDS ORDERED: ONDANSETRON HCL 4 MG/2 ML VIAL ONE (15:44)
[2020-04-01] MEDS ORDERED: ONDANSETRON HCL 4 MG/2 ML VIAL IVP PRN (16:00)
[2020-04-01 17:01] VITALS: BP 118/81
[2020-04-01 23:13] VITALS: BP 99/75
[2020-04-02 01:05] VITALS: BP 126/80
[2020-04-02] MEDS ORDERED: TAMSULOSIN HCL 0.4 MG CAP.ER.24H ONE (05:17)
[2020-04-02] MEDS: TAMSULOSIN HCL 0.4 MG CAP.ER.24H PO SCH (05:27)
[2020-04-02 06:03] VITALS: BP 113/80
[2020-04-02 08:21] VITALS: BP 114/81
[2020-04-02] MEDS ORDERED: VENLAFAXINE HCL XR 37.5 MG CAP PO ONE (08:33)
[2020-04-02] MEDS: THIAMINE HCL 100 MG TABLET PO SCH (08:37)
[2020-04-02] MEDS: CYANOCOBALAMIN (VITAMIN B-12) 1,000 MCG TABLET PO SCH (08:38)
[2020-04-02] MEDS: BENZTROPINE MESYLATE 0.5 MG TAB PO SCH ×2 (08:38→21:36)
[2020-04-02] MEDS: QUETIAPINE FUMARATE 25 MG TAB PO SCH ×2 (08:39→21:37)
[2020-04-02] MEDS: VENLAFAXINE HCL XR 37.5 MG CAP PO SCH (08:39)
[2020-04-02] MEDS: PANTOPRAZOLE SODIUM 40 MG TABLET.DR PO SCH ×2 (08:39→21:37)
[2020-04-02] MEDS: ENOXAPARIN SODIUM 30 MG/0.3 ML SQ SCH (08:39)
[2020-04-02] MEDS: CITALOPRAM 20 MG TABLET PO SCH (08:39)
[2020-04-02] MEDS: LACTULOSE 20 GM/30 ML UDCUP PO SCH ×4 (08:39→21:37)
[2020-04-02] MEDS: FOLIC ACID 1 MG TABLET PO SCH (08:39)
[2020-04-02] MEDS: HONEY 1 APPL/ML TUBE TP SCH (09:00)
[2020-04-02 11:49] VITALS: BP 104/73
[2020-04-02 16:00] VITALS: BP 108/78
[2020-04-02 20:17] VITALS: BP 115/76
[2020-04-02] MEDS: POTASSIUM CHLORIDE 20 MEQ ERTAB PO SCH (21:36)
[2020-04-02] MEDS: SPIRONOLACTONE 25 MG TAB PO SCH (21:36)
[2020-04-02] MEDS: MAGNESIUM OXIDE 400 MG TABLET PO SCH (21:37)
[2020-04-03 00:14] VITALS: BP 106/71
[2020-04-03] MEDS: TRAMADOL HCL 50 MG TABLET PO PRN (01:26)
[2020-04-03 04:34] VITALS: BP 107/75
[2020-04-03] MEDS ORDERED: TAMSULOSIN HCL 0.4 MG CAP.ER.24H ONE (05:58)
[2020-04-03] MEDS: TAMSULOSIN HCL 0.4 MG CAP.ER.24H PO SCH (06:02)
[2020-04-03 06:24] LABS: BASOPHILS % (AUTO) 1.1 % (0.0-5.0); EOSINOPHILS % (AUTO) 2.8 % (0.0-8.0); HEMATOCRIT 24.5 % (42-54); LYMPHOCYTES % (AUTO) 34.4 % (21.0-51.0); MEAN CORPUSCULAR HEMOGLOBIN 29.6 pg (27.0-33.0); MEAN CORPUSCULAR HGB CONC 33.5 g/dL (32.0-36.0); MEAN CORPUSCULAR VOLUME 88.4 fL (79-99); MONOCYTES % (AUTO) 10.8 % (3.0-13.0); NEUTROPHILS % (AUTO) 50.6 % (40.0-77.0); PLATELET COUNT (AUTO) 59 K/uL (130-400); RED BLOOD CELL COUNT(AUTO) 2.77 MIL/uL (4.50-6.20); WHITE BLOOD COUNT (AUTO) 6.1 K/uL (4.8-10.8)
[2020-04-03 06:29] LABS: AMMONIA 51 umol/L (11-32); CARBON DIOXIDE 24 mmol/L (21-32); CHLORIDE 101 mmol/L (101-111); CREATININE 1.3 mg/dL (0.5-1.5); GLOMERULAR FILTR. RATE CALC 62 mL/min (>60); GLUCOSE,RANDOM 123 mg/dL (70-105); POTASSIUM 4.7 mmol/L (3.5-5.1); SODIUM SERUM 131 mmol/L (136-145); UREA NITROGEN, BLOOD 16 mg/dL (7-18)
[2020-04-03 07:30] VITALS: BP 116/83
[2020-04-03] MEDS: ENOXAPARIN SODIUM 30 MG/0.3 ML SQ SCH (09:00)
[2020-04-03] MEDS: HONEY 1 APPL/ML TUBE TP SCH (09:00)
[2020-04-03] MEDS: FOLIC ACID 1 MG TABLET PO SCH (10:13)
[2020-04-03] MEDS: QUETIAPINE FUMARATE 25 MG TAB PO SCH ×2 (10:13→21:14)
[2020-04-03] MEDS: CYANOCOBALAMIN (VITAMIN B-12) 1,000 MCG TABLET PO SCH (10:13)
[2020-04-03] MEDS: BENZTROPINE MESYLATE 0.5 MG TAB PO SCH ×2 (10:13→21:13)
[2020-04-03] MEDS: PANTOPRAZOLE SODIUM 40 MG TABLET.DR PO SCH ×2 (10:13→21:14)
[2020-04-03] MEDS: CITALOPRAM 20 MG TABLET PO SCH (10:13)
[2020-04-03] MEDS: FUROSEMIDE 20 MG TABLET PO SCH (10:13)
[2020-04-03] MEDS: LACTULOSE 20 GM/30 ML UDCUP PO SCH ×4 (10:26→21:14)
[2020-04-03] MEDS: THIAMINE HCL 100 MG TABLET PO SCH (10:26)
[2020-04-03 11:00] VITALS: BP 121/83
[2020-04-03] MEDS ORDERED: VENLAFAXINE HCL XR 37.5 MG CAP PO ONE (14:39)
[2020-04-03] MEDS: VENLAFAXINE HCL XR 37.5 MG CAP PO SCH (14:40)
[2020-04-03 16:00] VITALS: BP 97/63
[2020-04-03 20:00] VITALS: BP 98/68
[2020-04-03] MEDS: POTASSIUM CHLORIDE 20 MEQ ERTAB PO SCH (21:00)
[2020-04-03] MEDS: SPIRONOLACTONE 25 MG TAB PO SCH (21:14)
[2020-04-03] MEDS: MAGNESIUM OXIDE 400 MG TABLET PO SCH (21:14)
[2020-04-04] VITALS (7 sets, daily range): BP systolic 101–118; BP diastolic 64–82
[2020-04-04] MEDS ORDERED: TAMSULOSIN HCL 0.4 MG CAP.ER.24H ONE (05:11)
[2020-04-04] MEDS: TAMSULOSIN HCL 0.4 MG CAP.ER.24H PO SCH (05:11)
[2020-04-04 06:23] LABS: BASOPHILS % (AUTO) 1.2 % (0.0-5.0); EOSINOPHILS % (AUTO) 2.6 % (0.0-8.0); HEMATOCRIT 24.9 % (42-54); MEAN CORPUSCULAR HEMOGLOBIN 29.8 pg (27.0-33.0); MEAN CORPUSCULAR HGB CONC 33.7 g/dL (32.0-36.0); MEAN CORPUSCULAR VOLUME 88.3 fL (79-99); MONOCYTES % (AUTO) 10.9 % (3.0-13.0); NEUTROPHILS % (AUTO) 52.9 % (40.0-77.0); PLATELET COUNT (AUTO) 79 K/uL (130-400); RED BLOOD CELL COUNT(AUTO) 2.82 MIL/uL (4.50-6.20); WHITE BLOOD COUNT (AUTO) 5.7 K/uL (4.8-10.8)
[2020-04-04 06:29] LABS: CREATININE 1.3 mg/dL (0.5-1.5); MAGNESIUM 2.1 mg/dL (1.80-2.40); POTASSIUM 4.5 mmol/L (3.5-5.1)
[2020-04-04] MEDS: CYANOCOBALAMIN (VITAMIN B-12) 1,000 MCG TABLET PO SCH (10:41)
[2020-04-04] MEDS: QUETIAPINE FUMARATE 25 MG TAB PO SCH ×2 (10:42→21:30)
[2020-04-04] MEDS: FUROSEMIDE 20 MG TABLET PO SCH (10:42)
[2020-04-04] MEDS: PANTOPRAZOLE SODIUM 40 MG TABLET.DR PO SCH ×2 (10:44→21:30)
[2020-04-04] MEDS: FOLIC ACID 1 MG TABLET PO SCH (10:44)
[2020-04-04] MEDS: ENOXAPARIN SODIUM 30 MG/0.3 ML SQ SCH (10:47)
[2020-04-04] MEDS: HONEY 1 APPL/ML TUBE TP SCH (11:01)
[2020-04-04] MEDS: LACTULOSE 20 GM/30 ML UDCUP PO SCH ×2 (11:02→21:39)
[2020-04-04] MEDS ORDERED: VENLAFAXINE HCL XR 37.5 MG CAP PO ONE (15:49)
[2020-04-04] MEDS: MAGNESIUM OXIDE 400 MG TABLET PO SCH (21:30)
[2020-04-04] MEDS: POTASSIUM CHLORIDE 20 MEQ ERTAB PO SCH (21:31)
[2020-04-04] MEDS: SPIRONOLACTONE 25 MG TAB PO SCH (21:32)
[2020-04-04] MEDS: BENZTROPINE MESYLATE 0.5 MG TAB PO SCH (21:39)
[2020-04-05 03:56] LABS: BASOPHILS % (AUTO) 0.9 % (0.0-5.0); EOSINOPHILS % (AUTO) 2.5 % (0.0-8.0); LYMPHOCYTES % (AUTO) 35.3 % (21.0-51.0); MEAN CORPUSCULAR HEMOGLOBIN 29.3 pg (27.0-33.0); MEAN CORPUSCULAR HGB CONC 33.8 g/dL (32.0-36.0); NEUTROPHILS % (AUTO) 51.1 % (40.0-77.0); PLATELET COUNT (AUTO) 66 K/uL (130-400); RED BLOOD CELL COUNT(AUTO) 2.76 MIL/uL (4.50-6.20); RED CELL DISTRIBUTION WIDTH 13.1 % (11.0-15.5); WHITE BLOOD COUNT (AUTO) 5.3 K/uL (4.8-10.8)
[2020-04-05 04:05] LABS: CREATININE 1.1 mg/dL (0.5-1.5); POTASSIUM 4.4 mmol/L (3.5-5.1)
[2020-04-05 04:21] VITALS: BP 100/76
[2020-04-05] MEDS ORDERED: TAMSULOSIN HCL 0.4 MG CAP.ER.24H ONE (05:22)
[2020-04-05] MEDS: TAMSULOSIN HCL 0.4 MG CAP.ER.24H PO SCH (05:23)
[2020-04-05 08:08] VITALS: BP 111/79
[2020-04-05] MEDS: CITALOPRAM 20 MG TABLET PO SCH (08:32)
[2020-04-05] MEDS: BENZTROPINE MESYLATE 0.5 MG TAB PO SCH ×2 (08:33→22:38)
[2020-04-05] MEDS: FUROSEMIDE 20 MG TABLET PO SCH (08:33)
[2020-04-05] MEDS: QUETIAPINE FUMARATE 25 MG TAB PO SCH ×2 (08:33→22:39)
[2020-04-05] MEDS: PANTOPRAZOLE SODIUM 40 MG TABLET.DR PO SCH ×2 (08:34→22:38)
[2020-04-05] MEDS: LACTULOSE 20 GM/30 ML UDCUP PO SCH ×4 (08:34→22:38)
[2020-04-05] MEDS: HONEY 1 APPL/ML TUBE TP SCH (08:35)
[2020-04-05] MEDS: ENOXAPARIN SODIUM 30 MG/0.3 ML SQ SCH (09:00)
[2020-04-05] MEDS: VENLAFAXINE HCL XR 37.5 MG CAP PO SCH (09:00)
[2020-04-05 11:33] VITALS: BP 111/82
[2020-04-05 16:29] VITALS: BP 107/55
[2020-04-05 19:32] VITALS: BP 100/68
[2020-04-05] MEDS: POTASSIUM CHLORIDE 20 MEQ ERTAB PO SCH (22:37)
[2020-04-05] MEDS: SPIRONOLACTONE 25 MG TAB PO SCH (22:37)
[2020-04-05] MEDS: MAGNESIUM OXIDE 400 MG TABLET PO SCH (22:37)
[2020-04-05 23:16] VITALS: BP 111/81
[2020-04-06 03:27] VITALS: BP 123/83
[2020-04-06 05:35] LABS: BASOPHILS % (AUTO) 1.1 % (0.0-5.0); HEMATOCRIT 24.2 % (42-54); LYMPHOCYTES % (AUTO) 32.5 % (21.0-51.0); MEAN CORPUSCULAR HEMOGLOBIN 29.7 pg (27.0-33.0); MEAN CORPUSCULAR HGB CONC 33.5 g/dL (32.0-36.0); MEAN CORPUSCULAR VOLUME 88.6 fL (79-99); MONOCYTES % (AUTO) 10.4 % (3.0-13.0); NEUTROPHILS % (AUTO) 53.8 % (40.0-77.0); PLATELET COUNT (AUTO) 54 K/uL (130-400); RED BLOOD CELL COUNT(AUTO) 2.73 MIL/uL (4.50-6.20); RED CELL DISTRIBUTION WIDTH 13.3 % (11.0-15.5); WHITE BLOOD COUNT (AUTO) 5.6 K/uL (4.8-10.8)
[2020-04-06 05:49] LABS: CREATININE 1.2 mg/dL (0.5-1.5); POTASSIUM 4.3 mmol/L (3.5-5.1)
[2020-04-06] MEDS ORDERED: TAMSULOSIN HCL 0.4 MG CAP.ER.24H ONE (06:32)
[2020-04-06] MEDS: TAMSULOSIN HCL 0.4 MG CAP.ER.24H PO SCH (06:45)
[2020-04-06 07:30] VITALS: BP 119/85
[2020-04-06] MEDS: HONEY 1 APPL/ML TUBE TP SCH (09:00)
[2020-04-06] MEDS: CITALOPRAM 20 MG TABLET PO SCH (09:48)
[2020-04-06] MEDS: FUROSEMIDE 20 MG TABLET PO SCH (09:49)
[2020-04-06] MEDS: QUETIAPINE FUMARATE 25 MG TAB PO SCH ×2 (09:49→20:35)
[2020-04-06] MEDS: PANTOPRAZOLE SODIUM 40 MG TABLET.DR PO SCH ×2 (09:49→20:35)
[2020-04-06] MEDS: BENZTROPINE MESYLATE 0.5 MG TAB PO SCH ×2 (09:49→20:35)
[2020-04-06] MEDS: ENOXAPARIN SODIUM 30 MG/0.3 ML SQ SCH (09:50)
[2020-04-06] MEDS ORDERED: VENLAFAXINE HCL XR 37.5 MG CAP PO ONE ×2 (09:51→17:06)
[2020-04-06] MEDS: VENLAFAXINE HCL XR 37.5 MG CAP PO SCH ×2 (09:52→10:18)
[2020-04-06] MEDS: LACTULOSE 20 GM/30 ML UDCUP PO SCH (09:55)
[2020-04-06 11:00] VITALS: BP 122/79
[2020-04-06 16:00] VITALS: BP 108/77
[2020-04-06 19:42] VITALS: BP 124/81
[2020-04-06] MEDS: SPIRONOLACTONE 25 MG TAB PO SCH (20:35)
[2020-04-06] MEDS: MAGNESIUM OXIDE 400 MG TABLET PO SCH (20:35)
[2020-04-06] MEDS: POTASSIUM CHLORIDE 20 MEQ ERTAB PO SCH (20:35)
[2020-04-06 23:39] VITALS: BP 122/91
[2020-04-07] MEDS ORDERED: TAMSULOSIN HCL 0.4 MG CAP.ER.24H ONE (04:08)
[2020-04-07] MEDS: TAMSULOSIN HCL 0.4 MG CAP.ER.24H PO SCH (04:34)
[2020-04-07 04:38] VITALS: BP 125/97
[2020-04-07 08:00] VITALS: BP 109/76
[2020-04-07] MEDS: BENZTROPINE MESYLATE 0.5 MG TAB PO SCH ×2 (08:36→20:05)
[2020-04-07] MEDS: QUETIAPINE FUMARATE 25 MG TAB PO SCH ×2 (08:36→20:05)
[2020-04-07] MEDS: CITALOPRAM 20 MG TABLET PO SCH (08:36)
[2020-04-07] MEDS: FUROSEMIDE 20 MG TABLET PO SCH (08:36)
[2020-04-07] MEDS: PANTOPRAZOLE SODIUM 40 MG TABLET.DR PO SCH ×2 (08:36→20:05)
[2020-04-07] MEDS: ENOXAPARIN SODIUM 30 MG/0.3 ML SQ SCH (08:37)
[2020-04-07] MEDS: HONEY 1 APPL/ML TUBE TP SCH (08:44)
[2020-04-07 11:00] VITALS: BP 105/63
[2020-04-07 16:00] VITALS: BP 104/81
[2020-04-07 19:00] VITALS: BP 136/98
[2020-04-07] MEDS: SPIRONOLACTONE 25 MG TAB PO SCH (20:05)
[2020-04-07] MEDS: MAGNESIUM OXIDE 400 MG TABLET PO SCH (20:05)
[2020-04-07] MEDS: POTASSIUM CHLORIDE 20 MEQ ERTAB PO SCH (20:06)
[2020-04-08] VITALS: BP 121/80
[2020-04-08 04:00] VITALS: BP 117/84
[2020-04-08] MEDS: TAMSULOSIN HCL 0.4 MG CAP.ER.24H PO SCH (04:25)
[2020-04-08 06:07] LABS: HEMATOCRIT 24.2 % (42-54); LYMPHOCYTES % (AUTO) 29.6 % (21.0-51.0); MEAN CORPUSCULAR HEMOGLOBIN 29.4 pg (27.0-33.0); MEAN CORPUSCULAR HGB CONC 33.9 g/dL (32.0-36.0); MEAN CORPUSCULAR VOLUME 86.7 fL (79-99); NEUTROPHILS % (AUTO) 57.2 % (40.0-77.0); PLATELET COUNT (AUTO) 59 K/uL (130-400); RED BLOOD CELL COUNT(AUTO) 2.79 MIL/uL (4.50-6.20); RED CELL DISTRIBUTION WIDTH 13.2 % (11.0-15.5); WHITE BLOOD COUNT (AUTO) 5.9 K/uL (4.8-10.8)
[2020-04-08 06:31] LABS: INR 1.48 (0.85-1.15); PLATELET MORPHOLOGY COMMENT PLT CLUMPS PRESENT; PROTHROMBIN TIME 15.3 SEC (9.6-11.6)
[2020-04-08 06:44] LABS: ALBUMIN 1.8 g/dL (3.5-5.0); BILIRUBIN,TOTAL 0.9 mg/dL (0.2-1.0); CREATININE 1.2 mg/dL (0.5-1.5); POTASSIUM 4.2 mmol/L (3.5-5.1); TOTAL PROTEIN, SERUM 6.8 g/dL (6.0-8.3)
[2020-04-08 08:00] VITALS: BP 123/90
[2020-04-08] MEDS: ENOXAPARIN SODIUM 30 MG/0.3 ML SQ SCH (09:00)
[2020-04-08] MEDS: HONEY 1 APPL/ML TUBE TP SCH (09:16)
[2020-04-08] MEDS: PANTOPRAZOLE SODIUM 40 MG TABLET.DR PO SCH ×2 (09:48→20:42)
[2020-04-08] MEDS: BENZTROPINE MESYLATE 0.5 MG TAB PO SCH ×2 (09:48→20:42)
[2020-04-08] MEDS: FUROSEMIDE 20 MG TABLET PO SCH (09:49)
[2020-04-08] MEDS: QUETIAPINE FUMARATE 25 MG TAB PO SCH ×2 (09:49→20:42)
[2020-04-08] MEDS: CITALOPRAM 20 MG TABLET PO SCH (09:49)
[2020-04-08 12:00] VITALS: BP 123/90
[2020-04-08 16:00] VITALS: BP 115/86
[2020-04-08 20:00] VITALS: BP 127/91
[2020-04-08] MEDS: MAGNESIUM OXIDE 400 MG TABLET PO SCH (20:42)
[2020-04-08] MEDS: POTASSIUM CHLORIDE 20 MEQ ERTAB PO SCH (20:42)
[2020-04-08] MEDS: SPIRONOLACTONE 25 MG TAB PO SCH (20:43)
[2020-04-09] VITALS (7 sets, daily range): BP systolic 112–132; BP diastolic 68–94
[2020-04-09] MEDS ORDERED: TAMSULOSIN HCL 0.4 MG CAP.ER.24H ONE (04:13)
[2020-04-09] MEDS: TAMSULOSIN HCL 0.4 MG CAP.ER.24H PO SCH (04:46)
[2020-04-09] MEDS: ENOXAPARIN SODIUM 30 MG/0.3 ML SQ SCH (09:00)
[2020-04-09] MEDS: BENZTROPINE MESYLATE 0.5 MG TAB PO SCH ×2 (10:25→21:29)
[2020-04-09] MEDS: QUETIAPINE FUMARATE 25 MG TAB PO SCH ×2 (10:25→21:29)
[2020-04-09] MEDS: FUROSEMIDE 20 MG TABLET PO SCH (10:25)
[2020-04-09] MEDS: PANTOPRAZOLE SODIUM 40 MG TABLET.DR PO SCH ×2 (10:25→21:29)
[2020-04-09] MEDS: CITALOPRAM 20 MG TABLET PO SCH (10:26)
[2020-04-09] MEDS: HONEY 1 APPL/ML TUBE TP SCH (10:29)
[2020-04-09] MEDS: VENLAFAXINE HCL XR 37.5 MG CAP PO SCH (12:45)
[2020-04-09] MEDS: MAGNESIUM OXIDE 400 MG TABLET PO SCH (21:28)
[2020-04-09] MEDS: SPIRONOLACTONE 25 MG TAB PO SCH (21:29)
[2020-04-09] MEDS: POTASSIUM CHLORIDE 20 MEQ ERTAB PO SCH (21:29)
[2020-04-10] MEDS ORDERED: ACETAMINOPHEN 325 MG TAB ONE (00:15)
[2020-04-10] MEDS ORDERED: ACETAMINOPHEN 325 MG TAB PO PRN (00:15)
[2020-04-10 03:49] VITALS: BP 124/93
[2020-04-10] MEDS ORDERED: TAMSULOSIN HCL 0.4 MG CAP.ER.24H ONE (06:27)
[2020-04-10] MEDS: TAMSULOSIN HCL 0.4 MG CAP.ER.24H PO SCH (06:29)
[2020-04-10 07:02] LABS: BASOPHILS % (AUTO) 0.9 % (0.0-5.0); EOSINOPHILS % (AUTO) 2.9 % (0.0-8.0); HEMATOCRIT 25.2 % (42-54); LYMPHOCYTES % (AUTO) 37.1 % (21.0-51.0); MEAN CORPUSCULAR HEMOGLOBIN 29.7 pg (27.0-33.0); MEAN CORPUSCULAR HGB CONC 33.7 g/dL (32.0-36.0); MEAN CORPUSCULAR VOLUME 88.1 fL (79-99); MONOCYTES % (AUTO) 10.5 % (3.0-13.0); NEUTROPHILS % (AUTO) 48.2 % (40.0-77.0); PLATELET COUNT (AUTO) 81 K/uL (130-400); RED BLOOD CELL COUNT(AUTO) 2.86 MIL/uL (4.50-6.20); RED CELL DISTRIBUTION WIDTH 13.6 % (11.0-15.5); WHITE BLOOD COUNT (AUTO) 5.5 K/uL (4.8-10.8)
[2020-04-10 07:27] LABS: CREATININE 1.2 mg/dL (0.5-1.5)
[2020-04-10 08:03] VITALS: BP 135/53
[2020-04-10] MEDS: CITALOPRAM 20 MG TABLET PO SCH (08:22)
[2020-04-10] MEDS: BENZTROPINE MESYLATE 0.5 MG TAB PO SCH ×2 (08:22→22:48)
[2020-04-10] MEDS: FUROSEMIDE 20 MG TABLET PO SCH (08:24)
[2020-04-10] MEDS: PANTOPRAZOLE SODIUM 40 MG TABLET.DR PO SCH (08:24)
[2020-04-10] MEDS: VENLAFAXINE HCL XR 37.5 MG CAP PO SCH (08:24)
[2020-04-10] MEDS: QUETIAPINE FUMARATE 25 MG TAB PO SCH ×2 (08:25→22:48)
[2020-04-10] MEDS: ENOXAPARIN SODIUM 30 MG/0.3 ML SQ SCH (08:25)
[2020-04-10] MEDS: HONEY 1 APPL/ML TUBE TP SCH (09:00)
[2020-04-10 11:36] VITALS: BP 118/77
[2020-04-10] MEDS ORDERED: ALBUMIN (HUMAN) 25% 200 ML IV SCH ×2 (12:15→13:00)
[2020-04-10 13:35] LABS: APPEARANCE BODY FLUID CLEAR (CLEAR); BODY FLUID WBC 72 /cu. mm.; COLOR,BODY FLUID YELLOW (LT YELLOW); SPECIMENTYPE,BODY FLUID ASCITES; TOTAL VOLUME,BODY FLUID 5800 mL
[2020-04-10 13:36] LABS: BODY FLUID RBC 112 /cu. mm.
[2020-04-10 13:56] LABS: BF LYMPHOCYTE 51 %; BF MESOTHELIAL 12 %; BF MONOCYTE 12 %
[2020-04-10 16:00] VITALS: BP 98/69
[2020-04-10 20:00] VITALS: BP 109/79
[2020-04-10] MEDS: POTASSIUM CHLORIDE 20 MEQ ERTAB PO SCH (22:48)
[2020-04-10] MEDS: SPIRONOLACTONE 25 MG TAB PO SCH (22:48)
[2020-04-10] MEDS: MAGNESIUM OXIDE 400 MG TABLET PO SCH (22:48)
[2020-04-11] VITALS: BP 112/81
[2020-04-11 03:51] VITALS: BP 116/85
[2020-04-11 07:54] VITALS: BP 121/87
[2020-04-11] MEDS: HONEY 1 APPL/ML TUBE TP SCH (09:00)
[2020-04-11] MEDS: BENZTROPINE MESYLATE 0.5 MG TAB PO SCH (09:34)
[2020-04-11] MEDS: VENLAFAXINE HCL XR 37.5 MG CAP PO SCH (09:34)
[2020-04-11] MEDS: QUETIAPINE FUMARATE 25 MG TAB PO SCH (09:34)
[2020-04-11] MEDS: FUROSEMIDE 20 MG TABLET PO SCH (09:34)
[2020-04-11] MEDS: ENOXAPARIN SODIUM 30 MG/0.3 ML SQ SCH (09:35)
[2020-04-11 11:45] VITALS: BP 109/77
== END 2020-04-11 17:04 | DRG 432 ==
LOC: EDH 09:16 → EDHIP 09:17 → 3BH 15:35 → 3DH 03-27 21:49
PROVIDERS: ADMIT Internal Medicine; ATTEND Internal Medicine
PROC: 0W9G3ZZ Drainage of Peritoneal Cavity, Percutaneous Approach (ICD-10-PCS; principal; 2020-03-07)
PROC: 0W9G3ZZ Drainage of Peritoneal Cavity, Percutaneous Approach (ICD-10-PCS; 2020-03-21)
PROC: 30233N1 Transfusion of Nonautologous Red Blood Cells into Peripheral Vein, Percutaneous Approach (ICD-10-PCS; 2020-03-31)
PROC: 30233R1 Transfusion of Nonautologous Platelets into Peripheral Vein, Percutaneous Approach (ICD-10-PCS; 2020-04-05)
PROC: 0W9G3ZZ Drainage of Peritoneal Cavity, Percutaneous Approach (ICD-10-PCS; 2020-04-10)
DX: K74.60 Unspecified cirrhosis of liver (principal); G93.41 Metabolic encephalopathy; E43 Unspecified severe protein-calorie malnutrition; E87.1 Hypo-osmolality and hyponatremia; K92.2 Gastrointestinal hemorrhage, unspecified; R18.8 Other ascites; N39.0 Urinary tract infection, site not specified; K76.6 Portal hypertension; K72.90 Hepatic failure, unspecified without coma; D64.9 Anemia, unspecified; R62.7 Adult failure to thrive; D69.59 Other secondary thrombocytopenia; B95.2 Enterococcus as the cause of diseases classified elsewhere; E87.70 Fluid overload, unspecified; Z20.828 Contact with and (suspected) exposure to other viral communicable diseases; F25.9 Schizoaffective disorder, unspecified; R16.1 Splenomegaly, not elsewhere classified; F32.9 Major depressive disorder, single episode, unspecified; Z66 Do not resuscitate; Z68.27 Body mass index [BMI] 27.0-27.9, adult; Z85.028 Personal history of other malignant neoplasm of stomach; Z91.19 Patient's noncompliance with other medical treatment and regimen
CPT/HCPCS: 36415; 36430; 49083; 70450; 71045; 74176; 80048; 80053; 81001; 82042; 82140; 82550; 82948; 83605; 83735; 84100; 84132; 84145; 84157; 85014; 85018; 85025; 85027; 85610; 85730; 86850; 86900; 86901; 86923; 87040; 87071; 87077; 87088; 87186; 87205; 87426; 89051; 97039; C9113; G0378; J0696; J1200; J1630; J1650; J1756; J2354; J2405; J3475; J3486; J7050; P9016; P9034; P9046; U0003